=== PATIENT | female | born 1940 | race Caucasian/White ===

== ENCOUNTER 2017-07-08 12:35 | Emergency (ER) | payer MEDICARE, SELFPAY ==
[2017-07-08 12:38] VITALS: BP 162/82; PULSE 88; RESP 16; TEMP 36.8; O2SAT 96; BMI 34.6
--- NOTE | 2017-07-08 12:50 | EKG12_ITS ---
Test Reason : CP Blood Pressure : / mmHG Vent. Rate : 082 BPM Atrial Rate : 082 BPM P-R Int : 136 ms QRS Dur : 088 ms QT Int : 372 ms P-R-T Axes : 038 -05 036 degrees QTc Int : 434 ms Normal sinus rhythm Normal ECG Confirmed by JOSEE ZEPEDA, PATSY ([id number]), editor dictionary GIRMA SANTILLAN ([id number]) on 07/10/2017 9:43:56 AM Referred By: PAULETTE Confirmed By:PATSY TRIPP MD
--- NOTE | 2017-07-08 12:50 | RAD_ITS ---
STUDY: X-RAY CHEST REASON FOR EXAM: Female, 77 years old. Cough and chest pain symptoms. TECHNIQUE: PA and lateral views of the chest. COMPARISON: July 10, 2016. FINDINGS: Cardiac monitoring leads are present. The lungs are hyperexpanded. There is interstitial thickening visible in both lungs. There is pleural fibrotic thickening of the pulmonary lung apices. There is borderline cardiomegaly. There are calcified mediastinal and hilar lymph nodes. Normal visualized pulmonary arteries. There is atherosclerotic calcification of the aortic arch with tortuosity. There is demineralization of the osseous structures. Patient has had open reduction and internal fixation of the proximal right humerus fracture. The proximal humerus is residual deformity. There is increased thoracic kyphosis. There is decreased height of several thoracic vertebral bodies probably related to mild old compression fractures. There is no demonstrated abnormality of the visualized soft tissue structures of the upper abdomen. RAD/Chest PA and Lateral IMPRESSION: Unchanged appearance of the chest with borderline cardiomegaly and apparent pulmonary fibrosis. Electronically Signed: Pura Kirkpatrick MD at 14:27 EST , Service support ,
--- NOTE | 2017-07-08 12:53 | ED.DCSUM_ITS ---
- ER Visit Summary Date of Service: 07/08/17 Chief Complaint: Chest pain History of Present Illness: The patient is a 77 F presenting with basically 2 days of fairly constant right sided nonradiating chest pain. It started while she was at the [facility] and has been constant but worse for the past 24 hours. It is not pleuritic but it is somewhat worse with coughing. She has also been short of breath and having cough but no body aches or fever/chills. She has a history of COPD and does occasionally get chest pain when she develops a bronchitis. She denies recent travel or mobilization. Denies lower extremity pain/swelling. Physical Examination: Vitals are within normal limits. Pulse ox is nearly 100% on room air. She is not in distress. Neck is supple. Heart tones are regular and without murmur. Lungs are clear bilaterally. Abdomen is soft and nontender. She has no edema. No tenderness along the lower extremity venous system, palpable cords, or other evidence of DVT. She has strong pulses in all extremities. Test Results: Chest x-ray negative. Troponin negative after several days of pain. Labs are basically within normal limits. Influenza A was positive Emergency Department Course and Treatment: Influenza A is positive. Chest x- ray is negative for infiltrate. Pulse ox is in the high 90s on room air and she feels well. She wants to try going home which I think is reasonable. She has no wheezing on exam so I do not think she needs steroids and her cough is nonproductive so I do not feel she needs antibiotics. She is certainly high risk because of her OPD so I told her to come back if she is not better within 24 hours and sooner if she is worse. She will be started on Tamiflu. Treatment Plan: Oral Tamiflu, close follow-up Disposition: Home in stable condition Impression: Influenza A, initial encounter This note was generated with [employer] dictation software. It may contain incorrect words, spelling, and punctuation that were not noted in review of the chart prior to signing ED Disposition - Plan for ED Patient: Chief Complaint: Chest Pain Instructions: ED Flu Prescriptions: Ondansetron [Zofran Odt] 4 mg PO Q8H PRN PRN #10 tablet PRN Reason: Nausea Oseltamivir Phosphate [Tamiflu] 75 mg PO BID #10 capsule Referrals: Quan Valenzuela MD [Primary Care Provider] - As soon as possible
[2017-07-08 13:01] LABS: Absolute Lymphocyte Count 0.67 X10^3/ul (0.83-4.51); Absolute Neutrophil Count 5.9 X10^3/uL (2.0-7.7); Basophil# 0.03 X10^3/uL; Basophil% 0.4 % (0-1); Eosinophil# 0.06 X10^3/uL; Eosinophils% 0.8 % (0-5); Hematocrit 37.6 % (37-47); Hemoglobin 12.9 g/dl (12.0-15.0); Lymphocyte # 0.67 X10^3/ul (4.0); Lymphocyte % 9.2 % (19-41); Mean Corp Hgb Conc 34.3 g/gl (32-36); Mean Corpuscular Hgb 32.7 pg (27.0-32.0); Mean Corpuscular Volume 95.4 fL (81-99); Mean Platelet Vol. 10.8 fl (6.2-12.0); Monocyte# 0.66 X10^3/uL; Neutrophil # 5.87 X10^3/uL (2.7-7.7); Neutrophil % 80.2 % (47-70); Platelet Count 147 K/mm3 (150-450); RBC Distribution Width CV 13.5 % (11.6-14.6); RBC Distribution Width SD 45.6 fl (35.1-43.9); Red Blood Count 3.94 M/mm3 (4.2-5.4); White Blood Count 7.3 K/mm3 (4.4-11.0)
[2017-07-08] MEDS: Aspirin 81 MG TAB.CHEW 324 MG PO (13:01)
[2017-07-08 13:02] LABS: POSITIVE COUNT NO; POSITIVE DIFFERENTIAL NO; POSITIVE MORPHOLOGY NO
[2017-07-08 13:22] LABS: Anion Gap 5 (5-15); BUN 12 mg/dL (7-18); BUN/Creat Ratio 20.2 RATIO (10-20); Calcium,Total 8.7 mg/dL (8.5-10.1); Chloride 101 mmol/L (98-107); Creatinine, Serum 0.59 mg/dL (0.55-1.02); EST Glomerular Filtration Rate 104 mL/min (>60); Est Glom Filt Rate - Afr Amer 126 mL/min (>60); Estimated Creatinine Clearance 36.12 ml/min; Glucose 101 mg/dL (74-106); Potassium 4.2 mmol/L (3.5-5.1); Sodium Level 134 mmol/L (136-145)
[2017-07-08 13:58] VITALS: BP 152/71; PULSE 78; RESP 24; O2SAT 93
[2017-07-08] MEDS: Oseltamivir Phosphate 75 MG Capsule PO (14:57)
[2017-07-08 15:11] VITALS: BP 138/73; PULSE 79; RESP 14; O2SAT 96
== END 2017-07-08 15:40 | disposition home or self-care (01) ==
PROVIDERS: Emergency Provider Emergency Medicine; Family Provider Family Medicine; PCP Family Medicine
DX: J11.1 Influenza due to unidentified influenza virus with other respiratory manifestations (principal); J44.9 Chronic obstructive pulmonary disease, unspecified; Z72.0 Tobacco use
CPT/HCPCS: 71046; 80048; 84484; 85025; 87804; 93005; 99284; A4216

== ENCOUNTER → 2017-07-23 10:27 | Outpatient (CLI) | payer MEDICARE, SELFPAY ==
--- NOTE | 2017-07-23 10:31 | RAD_ITS ---
XR Chest 2 Views INDICATION: cough, recent flu, possible pneumonia COMPARISON: July 08, 2017 TECHNIQUE: Portable chest x-ray FINDINGS: The heart size is at the upper limits of normal. Arteriosclerotic calcifications of the aortic arch are noted. Central pulmonary vascularity is within normal limits. Interstitial markings are increased, similar compared to the previous exam. No evidence of focal airspace consolidation or pleural effusion. The osseous structures are osteopenic. RAD/Chest PA and Lateral IMPRESSION: Stable chest x-ray with chronic increased interstitial markings. Stable borderline cardiomegaly and arteriosclerotic disease. at 0056 Reported and signed by: Jackie Upton MD Electronically Signed: Jackie Upton MD at 23:55 EST Tel , Service support ,
== END ==
PROVIDERS: Family Provider Family Medicine; PCP Family Medicine; Visit Provider Family Medicine
DX: R05 Cough (principal)
CPT/HCPCS: 71046

== ENCOUNTER → 2018-09-30 10:40 | Outpatient (CLI) | payer MEDICARE, SELFPAY ==
[2018-09-30 12:19] LABS: Hematocrit 35.7 % (37-47); Hemoglobin 11.6 g/dl (12.0-15.0); Mean Corp Hgb Conc 32.5 g/gl (32-36); Mean Corpuscular Volume 92.2 fL (81-99); Mean Platelet Vol. 11.1 fl (6.2-12.0); Platelet Count 287 K/mm3 (150-450); RBC Distribution Width CV 13.8 % (11.6-14.6); RBC Distribution Width SD 45.9 fl (35.1-43.9); Red Blood Count 3.87 M/mm3 (4.2-5.4); White Blood Count 9.2 K/mm3 (4.4-11.0)
[2018-09-30 12:23] LABS: Scan Indicated on CBC? Y/N NO
[2018-09-30 12:45] LABS: Vitamin D,25 Hydroxy 45.8 ng/mL (29.95-100.01)
[2018-09-30 13:00] LABS: ALB/GLOB Ratio 0.9 RATIO (0.9-2.4); AST(SGOT) 19 U/L (15-37); Alanine Aminotransfer ALT/SGPT 20 U/L (13-56); Albumin, Serum 3.3 g/dL (3.2-5.0); Alkaline Phosphatase 112 U/L (45-117); Anion Gap 3 (5-15); Anion Gap 6 (5-15); BUN 10 mg/dL (7-18); BUN 11 mg/dL (7-18); BUN/Creat Ratio 15.3 RATIO (10-20); Calcium,Total 8.6 mg/dL (8.5-10.1); Calcium,Total 8.8 mg/dL (8.5-10.1); Chloride 103 mmol/L (98-107); Chloride 105 mmol/L (98-107); Cholesterol 112 mg/dL (200); Creatinine, Serum 0.71 mg/dL (0.55-1.02); Creatinine, Serum 0.72 mg/dL (0.55-1.02); EST Glomerular Filtration Rate 84 mL/min (>60); Est Glom Filt Rate - Afr Amer 101 mL/min (>60); Est Glom Filt Rate - Afr Amer 102 mL/min (>60); Globulin 3.5 g/dL (2.2-4.2); Glucose 95 mg/dL (74-106); Glucose 98 mg/dL (74-106); High Density Lipoprotein 50 mg/dL; Magnesium 1.8 mg/dL (1.6-2.6); Potassium 4.1 mmol/L (3.5-5.1); Potassium 4.2 mmol/L (3.5-5.1); Protein, Total 6.8 g/dL (6.4-8.2); Sodium Level 136 mmol/L (136-145); Thyroid Stim Hormone (TSH) 1.97 uIU/mL (0.358-3.74); Triglycerides 115 mg/dL; Very Low Density Lipoprotein 23 mg/dL (5-40)
== END ==
PROVIDERS: PCP Family Medicine; Visit Provider Nurse Practitioner Family
DX: R10.9 Unspecified abdominal pain (principal); M81.0 Age-related osteoporosis without current pathological fracture; I10 Essential (primary) hypertension; I25.10 Atherosclerotic heart disease of native coronary artery without angina pectoris
CPT/HCPCS: 36415; 80048; 80053; 80061; 82306; 83735; 84443; 85027

== ENCOUNTER → 2019-02-13 14:44 | Outpatient (CLI) | payer MEDICARE, SELFPAY ==
--- NOTE | 2019-02-13 14:49 | RAD_ITS ---
STUDY: X-RAY CHEST REASON FOR EXAM: Female, 78 years old. Upper respiratory infection TECHNIQUE: Frontal and lateral views of the chest. COMPARISON: November 20, 2017. FINDINGS: There is hyperinflation of the lungs consistent with chronic obstructive lung disease (COPD). There is a new 2.7 cm focal density in the left upper lobe. This could be a mass. CT with contrast is recommended. No infiltrates. No effusions. There is no demonstrated pleural abnormality. Normal size heart. Normal mediastinum and meeta. Normal visualized pulmonary arteries. There is atherosclerotic calcification of the aortic arch with tortuosity. There are diffuse degenerative changes of the visualized thoracic spine. Stable appearance of surgical changes of the proximal right humerus. There is no demonstrated abnormality of the visualized soft tissue structures of the upper abdomen. RAD/Chest PA and Lateral IMPRESSION: Probable COPD. 2.7 cm focal density of the left upper lobe. CT with contrast is recommended. Electronically Signed: Waldemar Mccall MD at 21:40 EDT , Service support ,
== END ==
PROVIDERS: Family Provider Family Medicine; PCP Family Medicine; Referring Provider Family Medicine; Visit Provider Family Medicine
DX: J06.9 Acute upper respiratory infection, unspecified (principal)
CPT/HCPCS: 71046

== ENCOUNTER → 2019-02-25 13:17 | Outpatient (CLI) | payer MEDICARE, SELFPAY ==
--- NOTE | 2019-02-25 13:21 | CT_ITS ---
STUDY: CT CHEST WITHOUT CONTRAST REASON FOR EXAM: Female, 78 years old. Nodule on x-ray RADIATION DOSAGE (If Supplied By Facility): CTDIvol = ( 13.10 ) mGy, DLP = ( 392.28 ) mGycm TECHNIQUE: Transaxial imaging was performed without the administration of intravenous contrast material. Individualized dose optimization techniques were used for this CT. COMPARISON: None. FINDINGS: The lungs are hyperaerated. There is a lobulated left upper lobe 2.3 x 2.1 cm nodular mass with spiculation requiring further evaluation. Normal heart and pericardium. Normal mediastinum. Normal hilar regions. Normal unenhanced pulmonary arteries. Calcified aorta arch and descending thoracic aorta. Degenerative vertebral changes. There is no demonstrated abnormality of the visualized upper abdomen. CT/Chest without Contrast IMPRESSION: Lobulated nodule mass in the left upper lobe. Malignancy cannot be excluded. Further evaluation is needed. Electronically Signed: Franklin Kuo DO at 23:10 EDT Tel [phone], Service support ,
== END ==
PROVIDERS: Family Provider Family Medicine; PCP Family Medicine; Referring Provider Family Medicine; Visit Provider Family Medicine
DX: R91.8 Other nonspecific abnormal finding of lung field (principal)
CPT/HCPCS: 71250

== ENCOUNTER → 2019-03-03 14:08 | Outpatient (CLI) | payer MEDICARE, SELFPAY ==
[2019-03-03 15:17] LABS: Absolute Lymphocyte Count 2.08 X10^3/uL (0.83-4.51); Absolute Neutrophil Count 5.3 X10^3/uL (2.0-7.7); Basophil# 0.05 X10^3/uL; Basophil% 0.6 % (0-1); Eosinophil# 0.13 X10^3/uL; Eosinophils% 1.5 % (0-5); Hematocrit 35.3 % (37-47); Hemoglobin 11.4 g/dL (12.0-15.0); Lymphocyte # 2.08 X10^3/ul (4.0); Lymphocyte % 24.7 % (19-41); Mean Corp Hgb Conc 32.3 g/dL (32-36); Mean Corpuscular Hgb 28.6 pg (27.0-32.0); Mean Corpuscular Volume 88.7 fL (81-99); Mean Platelet Vol. 10.2 fl (6.2-12.0); Monocyte# 0.79 X10^3/uL; Monocyte% 9.4 % (0-10); NRBC Flagged by Analyzer 0 % (0-5); Neutrophil # 5.33 X10^3/uL (2.7-7.7); Neutrophil % 63.3 % (47-70); Platelet Count 297 K/mm3 (150-450); RBC Distribution Width CV 15.5 % (11.6-14.6); RBC Distribution Width SD 50.4 fl (35.1-43.9); Red Blood Count 3.98 M/mm3 (4.2-5.4); White Blood Count 8.4 K/mm3 (4.4-11.0)
[2019-03-03 15:28] LABS: Erythrocyte Sedimentation Rate 19 mm/hr (0-30)
[2019-03-03 16:08] LABS: ALB/GLOB Ratio 1.1 RATIO (0.9-2.4); AST(SGOT) 21 U/L (15-37); Alanine Aminotransfer ALT/SGPT 19 U/L (13-56); Albumin, Serum 3.5 g/dL (3.2-5.0); Alkaline Phosphatase 109 U/L (45-117); Anion Gap 6 (5-15); BUN 16 mg/dL (7-18); BUN/Creat Ratio 26.4 RATIO (10-20); CRP < 2.90 mg/L (0.0-3.0); Chloride 103 mmol/L (98-107); EST Glomerular Filtration Rate 102 mL/min (>60); Est Glom Filt Rate - Afr Amer 123 mL/min (>60); Globulin 3.3 g/dL (2.2-4.2); Glucose 92 mg/dL (74-106); LDH 165 U/L (84-246); Potassium 4.2 mmol/L (3.5-5.1); Protein, Total 6.8 g/dL (6.4-8.2); Sodium Level 136 mmol/L (136-145)
== END ==
PROVIDERS: Family Provider Family Medicine; PCP Family Medicine; Referring Provider Family Medicine; Visit Provider Family Medicine
DX: R91.1 Solitary pulmonary nodule (principal)
CPT/HCPCS: 36415; 80053; 83615; 85025; 85652; 86140

== ENCOUNTER → 2019-03-14 10:06 | Outpatient (CLI) | payer MEDICARE, SELFPAY ==
[2019-03-14 12:40] LABS: Hematocrit 34.7 % (37-47); Hemoglobin 10.9 g/dL (12.0-15.0); Mean Corp Hgb Conc 31.4 g/dL (32-36); Mean Corpuscular Hgb 28.2 pg (27.0-32.0); Mean Corpuscular Volume 89.9 fL (81-99); Mean Platelet Vol. 10.5 fl (6.2-12.0); Platelet Count 277 K/mm3 (150-450); RBC Distribution Width CV 15.7 % (11.6-14.6); RBC Distribution Width SD 51.4 fl (35.1-43.9); Red Blood Count 3.86 M/mm3 (4.2-5.4); White Blood Count 7.8 K/mm3 (4.4-11.0)
[2019-03-14 12:48] LABS: Prothrombin Time (Protime)PT. 12.9 SECONDS (11.7-14.9)
[2019-03-14 12:49] LABS: Partial Thromboplast Time 34.5 Seconds (24.1-36.2)
== END ==
PROVIDERS: Family Provider Family Medicine; PCP Family Medicine; Referring Provider Family Medicine; Visit Provider Family Medicine
DX: R91.1 Solitary pulmonary nodule (principal); I25.10 Atherosclerotic heart disease of native coronary artery without angina pectoris
CPT/HCPCS: 36415; 85027; 85610; 85730

== ENCOUNTER → 2019-03-18 09:20 | Outpatient (CLI) | payer MEDICARE, SELFPAY ==
[2019-03-18] VITALS (11 sets, daily range): BP systolic 116–194; BP diastolic 43–105; PULSE 71–91; RESP 14–20; TEMP 37; O2SAT 95–100; BMI 33.8
--- NOTE | 2019-03-18 | IMM_PTH ---
PATIENT: ASHLEY GOMEZ LOC: CT U#:[id number] AGE/SX: 85/F ROOM: RE03/18/[address]: Dr. Vivek Valenzuela MD : 1940 BED: DIS: SPEC #: [id number] RECD: 03/19/19 13:27 STATUS: ANN MARIE REQ #: [id number] LIDIA: 03/18/19 00:[address]: Vivek Valenzuela DEPT: IMMUNOHISTOCHEMISTRY RECD BY: Yadi Mohamud Tissues: Lung, NOS Procedures: RCC (add) NAPSIN A (add) CK20 (add) CK5-6 (add) CK7 (add) CK8 (add) E-CAD (add) HEP PAR (add) HER2 BRITTANI (add) MAMM (add) ID (add) TTF1 (add) GATA3 (add) P40 (add) ER (initial) PHYSICIAN & INSTITUTION [place] [id number] SPECIMEN INFORMATION: Tissue Source: Left upper lobe lung mass Clinical Info: Left lung mass Specimen Number: [id number] CPT code: 51913, 36673 x14 METHODOLOGY: Deparaffinized sections of prefer/formalin-fixed tissue or PAP/DQ stained slides are incubated with monoclonal/polyclonal antibodies/oligonucleotide probes. Localization is made via biotin free immunoperoxidase method. Appropriate controls are performed and reacted as expected. Results on target cell population are indicated in the following table: RESULTS: ANTIBODY / CLONE RESULT ER (6F11) negative ID (1E2) negative Her-2neu (CB11) negative E-Cad (ECH-6) positive Mammaglobin (31A5) negative GATA3 (L50-823) negative CK7 (OV-TL12/30) negative CK8 (42mmvnQ00) positive, weak, focal CK20 (KS20.8) negative TTF-1 (8G7G3/1) negative Napsin A (Rabbit Polyclonal) negative HepPar (OCh1E5) negative RCC (PN-15) negative CK5-6 (D5 & 1684) positive P40 (BC28) positive These tests were developed and their performance characteristics determined by [facility]. They may not have been cleared or approved by the U.S. Food and Drug Administration. The FDA has determined that such clearance or approval is not necessary. The above immunohistochemical/dualISH markers are ordered and reviewed by the Pathologist. INTERPRETATION: Left upper lobe lung mass, CT-guided biopsy: Non-small cell carcinoma, favor squamous cell carcinoma. This case has been reviewed in consultation with Dr. Castro who concurs with the above diagnosis. SJ:shazia 03/20/19
--- NOTE | 2019-03-18 | ASPIGT_PTH ---
PATIENT: ASHLEY GOMEZ LOC: CT U#:[id number] AGE/SX: 85/F ROOM: RE03/18/[address]: Dr. Vivek Valenzuela MD : 1940 BED: DIS: SPEC #: [id number] RECD: 03/18/19 13:06 STATUS: ANN MARIE ROMAINE #: [id number] LIDIA: 03/18/19 00:[address]: Vivek Valenzuela DEPT: SURGICAL PATHOLOGY RECD BY: Foster Encinas Tissues: Lung, NOS Procedures: FNA Specimen Adequacy Special Stain Group II Surgery Specimen Level IV Imprint (control) HEADER OPERATION: CT-guided core biopsy, left upper lung mass PRE-OP DIAGNOSIS: Left lung mass TISSUE SUBMITTED: Left upper lung core x4 MICROSCOPIC DIAGNOSIS Left upper lobe lung mass, CT-guided core biopsy: Non-small cell carcinoma, favor squamous cell carcinoma. See comment. RUSTAM:shazia 03/19/19 COMMENT The specimen is evaluated at the time of biopsy by Dr. Madrid. Immediate Evaluation = Mildly atypical cells noted. Immunohistochemistry ([id number]) supports the above diagnosis. Molecular studies on the tumor can be performed if clinically indicated. Please notify the laboratory if they are needed. Case has been reviewed in consultation with Dr. Reyes who concurs with the above diagnosis. IDC:AM MICROSCOPIC DESCRIPTION Slides are reviewed. GROSS DESCRIPTION Received in fixative is one container labeled with the patient's name and designated ANJELICA mass. The specimen consists of multiple irregular fragments of light coles soft tissue that in aggregate measure 1 x 0.2 x <0.1 cm. The specimen is totally submitted in one cassette. / SJ:shazia 03/18/19 TC:0 CPT: 60585, 26776
--- NOTE | 2019-03-18 09:23 | CT_ITS ---
PROCEDURE: CT GUIDED CORE NEEDLE BIOPSY OF A left upper lobe LUNG LESION INDICATION: Female, 78 years old. Left upper lobe nodule. PHYSICIAN: Dr. Mayito Travis CONSENT: Written informed consent was obtained having explained the risks, benefits and alternatives in detail with the patient who accepted the risks and agreed to proceed. Laboratory review and clinical assessment was performed. CONSCIOUS SEDATION PROTOCOL: The Drugs used were: 2 mg Versed, IV., and 50 mcg Fentanyl, IV. The sedation time was: 23 minutes. Conscious sedation was started 11:00 AM and terminated 11:23 AM. The conscious sedation protocol was independently monitored. RADIATION DOSAGE (If Supplied By Facility): CTDIvol = ( 21.6 ) mGy, DLP = (402.2) mGycm Individualized dose optimization techniques were used for this CT. TECHNIQUE: The patient was placed in the colon position. A noncontrast CT was performed to localize the lesion in the left upper lobe . The skin surface was prepped and draped in a sterile fashion. 1% lidocaine was used for local anesthesia. Using CT guidance, a 20-gauge coaxial biopsy device was advanced to the periphery of the lesion. A total of 4 core specimens were obtained. The specimens were placed in a formalin solution. A post procedure CT demonstrated no adverse sequelae or pneumothorax. The patient tolerated the procedure well without adverse event. A negative biopsy does not exclude malignancy. Further imaging or clinical followup based on patient condition and degree of clinical suspicion for malignancy. Suggest rebiopsy, if biopsy results do not match with clinical scenario. CT/Biopsy/Inj or Needle Placement IMPRESSION: 1. CT directed core needle biopsy of the 20-gauge coaxial core biopsy needle using CT image guidance with image documentation as described. Pathology results are pending. 2. Conscious Sedation protocol utilized with independent monitoring. Electronically Signed: Babak Edmond, at 14:00 EDT , Service support ,
[2019-03-18] MEDS: fentaNYL 100 MCG/2 ML Ampul IV (11:00)
[2019-03-18] MEDS: Midazolam 2 MG/2 ML Syringe IV (11:00)
--- NOTE | 2019-03-18 11:25 | RAD_ITS ---
STUDY: X-RAY CHEST REASON FOR EXAM: Female, 78 years old. Immediate left post biopsy radiograph. TECHNIQUE: AP inspiration and expiration views. COMPARISON: Comparison is made with prior examination of February 13, 2019. FINDINGS: There is no evidence of pneumothorax on the immediate post left lung biopsy radiograph. Persistent nodular density in the left upper lobe. RAD/Chest Insp/Exp 2 View IMPRESSION: No evidence of a pneumothorax on the immediate post left lung biopsy radiograph. Electronically Signed: Babak Edmond, at 13:21 EDT , Service support ,
--- NOTE | 2019-03-18 13:25 | RAD_ITS ---
STUDY: X-RAY CHEST REASON FOR EXAM: Female, 78 years old. 2 hour delay post left lung biopsy radiograph. TECHNIQUE: AP inspiration and expiration views. COMPARISON: Comparison is made with prior study done earlier in the day. FINDINGS: The patient is status post left lung biopsy. There is no evidence of pneumothorax. RAD/Chest Insp/Exp 2 View IMPRESSION: No evidence of pneumothorax on the 2 hour delay post left lung biopsy radiograph. Electronically Signed: Babak Edmond, at 9:54 EDT , Service support ,
== END ==
LOC: CT 09:21
PROVIDERS: Family Provider Family Medicine; PCP Family Medicine; Referring Provider Family Medicine; Visit Provider Family Medicine
DX: C34.12 Malignant neoplasm of upper lobe, left bronchus or lung (principal); R91.1 Solitary pulmonary nodule; I25.10 Atherosclerotic heart disease of native coronary artery without angina pectoris; F32.9 Major depressive disorder, single episode, unspecified; E78.5 Hyperlipidemia, unspecified; I10 Essential (primary) hypertension; F17.210 Nicotine dependence, cigarettes, uncomplicated
CPT/HCPCS: 32405; 71046; 77012; 88172; 88305; 88313; 88341; 88342; 99156; 99157; J7040; A4216

== ENCOUNTER → 2019-03-24 16:57 | Outpatient (CLI) | payer MEDICARE, SELFPAY ==
[2019-03-18 09:59] VITALS: BMI 33.8
--- NOTE | 2019-03-24 16:59 | CT_ITS ---
STUDY: CT ABDOMEN WITH CONTRAST REASON FOR EXAM: Female, 79 years old. Carcinoma RADIATION DOSAGE (If Supplied By Facility): CTDIvol = ( 20.18 ) mGy, DLP = ( 687.92 ) mGycm TECHNIQUE: Transaxial images were obtained post I.V. administration of IV Isovue 370 100ML, and without oral contrast. Sagittal and coronal images were reconstructed. Individualized dose optimization techniques were used for this CT. COMPARISON: None. FINDINGS: The visualized lung bases are unremarkable. The heart is enlarged. Normal liver. Normal gallbladder and extrahepatic biliary system. Normal spleen. Normal pancreas. Normal bilateral adrenal glands. Normal right kidney. Normal left kidney. Normal visualized stomach. Normal small intestine. Normal colon. The appendix is visualized and appears normal. Normal abdominal aorta. Normal inferior vena cava. Normal retroperitoneum. Normal abdominal wall. Normal osseous structures. CT/Abdomen WITH IV Contrast IMPRESSION: No evidence of metastatic disease in the abdomen. Cardiomegaly. Electronically Signed: José Miguel Almanza, at 17:37 EDT Tel , Service support ,
== END ==
LOC: CT 16:57
PROVIDERS: Family Provider Family Medicine; PCP Family Medicine; Referring Provider Family Medicine; Visit Provider Family Medicine
DX: C34.90 Malignant neoplasm of unspecified part of unspecified bronchus or lung (principal)
CPT/HCPCS: 74160; Q9967

== ENCOUNTER 2019-04-15 12:40 | Inpatient (IN) | payer MEDICARE, SELFPAY ==
[2019-04-15] VITALS (10 sets, daily range): BP systolic 132–161; BP diastolic 60–81; PULSE 63–92; RESP 15–20; TEMP 34.4–36.9; O2SAT 93–95; BMI 33.0; BMI 35.4; BMI 33.7
--- NOTE | 2019-04-15 13:07 | CT_ITS ---
STUDY: CT BRAIN WITHOUT CONTRAST REASON FOR EXAM: Female, 79 years old. Dizziness. History of lung cancer. RADIATION DOSAGE (If Supplied By Facility): CTDIvol = ( 44.99 ) mGy, DLP = ( 863.60 ) mGycm TECHNIQUE: Transaxial CT imaging of the brain was performed without administration of intravenous contrast material. Individualized dose optimization techniques were used for this CT. COMPARISON: No relevant priors. FINDINGS: Normal soft tissue structures. Normal calvarium. There is mild cerebral atrophy with widening of the extra-axial spaces and ventricular dilatation. There are areas of decreased attenuation within the white matter tracts of the supratentorial brain, consistent with microvascular disease changes. Normal basal ganglia and thalami. Normal brainstem. Normal cerebellum. There is no intracranial hemorrhage. There are no findings of an acute ischemic infarction. Atherosclerotic calcification of the cavernous portions of the internal carotid arteries bilaterally. Normal visualized paranasal sinuses. CT/Brain/Head without Contrast IMPRESSION: Chronic involutional changes of the brain. Electronically Signed: Babak Edmond, at 14:44 EST , Service support ,
--- NOTE | 2019-04-15 13:07 | EKG12_ITS ---
Test Reason : NAUSEA/VOMITING Blood Pressure : / mmHG Vent. Rate : 062 BPM Atrial Rate : 062 BPM P-R Int : 152 ms QRS Dur : 100 ms QT Int : 478 ms P-R-T Axes : -18 -21 051 degrees QTc Int : 485 ms Normal sinus rhythm Moderate voltage criteria for LVH, may be normal variant Nonspecific T wave abnormality Prolonged QT Abnormal ECG Confirmed by SWETA ANDUJAR ([id number]), map editor RAFAEL ARANGO ([id number]) on 04/18/2019 11:21:19 AM Referred By: Capo Reveles Confirmed By:SWETA ANDUJAR
[2019-04-15] MEDS: LORazepam 2 MG/ML Syringe 1 MG IV (13:28)
[2019-04-15] MEDS: Ondansetron 4 MG/2 ML Vial IV ×2 (13:28→22:18)
--- NOTE | 2019-04-15 13:32 | ED.DCSUM_ITS ---
- ER Visit Summary Date of Service: 04/15/19 Chief Complaint: Dizziness and nausea History of Present Illness: The patient is a 79 F with dizziness and nausea. Symptoms started at her doctor's waiting room around 11:30 AM. Patient reports severe dizziness, spinning. She also has nausea and vomiting. She never had this before. History of coronary disease, hypertension, hyperlipidemia, GERD, bleeding ulcer, and lung cancer. She takes aspirin and Plavix among her other medications. Physical Examination: Afebrile and vital signs unremarkable. Head and neck unremarkable on inspection. Cranial nerves grossly intact. HEENT exam unremarkable. Heart regular. Lungs clear. No focal or lateralizing neurologic abnormalities. NIH exam is limited but 0. Test Results: EKG, labs, chest x-ray, CT brain pending. Emergency Department Course and Treatment: Patient treated with fluids, Zofran, Ativan while awaiting results. She will likely need admission for further care. On reevaluation, patient is resting comfortably. No further nausea or vomiting. Heme globin 8.8. Metabolic panel unremarkable. INR and PTT normal. Troponin normal. Chest x-ray showed congestion, mild. CT showed chronic changes of her brain. Patient lives alone. Her symptoms are severe. She will need further care and evaluation in the hospital. Hospitalist will admit to PCU for observation. Treatment Plan: As above Disposition: PCU observation Impression: 1. Dizziness This note was generated with [employer] dictation software. It may contain incorrect words, spelling, and punctuation that were not noted in review of the chart prior to signing ED Disposition - Plan for ED Patient: Referrals: Quan Valenzuela MD [Primary Care Provider] -
[2019-04-15 13:45] LABS: Anion Gap 9 (5-15); BUN 13 mg/dL (7-18); BUN/Creat Ratio 22.3 RATIO (10-20); Calcium,Total 8.9 mg/dL (8.5-10.1); Chloride 102 mmol/L (98-107); Creatinine, Serum 0.58 mg/dL (0.55-1.02); EST Glomerular Filtration Rate 106 mL/min (>60); Est Glom Filt Rate - Afr Amer 129 mL/min (>60); Estimated Creatinine Clearance 36.67 ml/min; Glucose 153 mg/dL (74-106); Potassium 3.7 mmol/L (3.5-5.1); Sodium Level 135 mmol/L (136-145)
[2019-04-15 13:59] LABS: Absolute Lymphocyte Count 1.04 X10^3/uL (0.83-4.51); Absolute Neutrophil Count 8.8 X10^3/uL (2.0-7.7); Basophil# 0.04 X10^3/uL; Basophil% 0.4 % (0-1); Eosinophil# 0.06 X10^3/uL; Eosinophils% 0.6 % (0-5); Hematocrit 28.1 % (37-47); Hemoglobin 8.8 g/dL (12.0-15.0); Lymphocyte # 1.04 X10^3/ul (4.0); Lymphocyte % 9.7 % (19-41); Mean Corp Hgb Conc 31.3 g/dL (32-36); Mean Corpuscular Hgb 27.8 pg (27.0-32.0); Mean Corpuscular Volume 88.6 fL (81-99); Mean Platelet Vol. 9.6 fl (6.2-12.0); Monocyte# 0.74 X10^3/uL; Monocyte% 6.9 % (0-10); NRBC Flagged by Analyzer 0 % (0-5); Neutrophil # 8.82 X10^3/uL (2.7-7.7); Neutrophil % 81.8 % (47-70); Platelet Count 297 K/mm3 (150-450); RBC Distribution Width CV 15.4 % (11.6-14.6); RBC Distribution Width SD 50.6 fl (35.1-43.9); Red Blood Count 3.17 M/mm3 (4.2-5.4); White Blood Count 10.8 K/mm3 (4.4-11.0)
--- NOTE | 2019-04-15 14:10 | RAD_ITS ---
STUDY: X-RAY CHEST REASON FOR EXAM: Female, 79 years old. Dizziness. Nausea and vomiting. TECHNIQUE: Single AP portable view of the chest. COMPARISON: Comparison is made with prior study dated March 18, 2019. FINDINGS: EKG electrodes are seen. Stable 2.3 cm nodule in the left upper lobe. Mild degree of vascular congestion. There is no demonstrated pleural abnormality. There is mild cardiac enlargement. Normal mediastinum and meeta. Normal visualized pulmonary arteries. There is atherosclerotic calcification of the aortic arch with tortuosity. There are diffuse degenerative changes of the visualized thoracic spine. Prior resection of the right humeral head and ORIF of the proximal right humerus. There is no demonstrated abnormality of the visualized soft tissue structures of the upper abdomen. RAD/Chest 1 View IMPRESSION: Mild degree of vascular congestion. Electronically Signed: Babak Edmond, at 14:46 EST , Service support ,
[2019-04-15 14:11] LABS: Prothrombin Time (Protime)PT. 13.4 SECONDS (11.7-14.9)
[2019-04-15 14:12] LABS: Partial Thromboplast Time 28.3 Seconds (24.1-36.2)
--- NOTE | 2019-04-15 15:53 | HP.PCM_ITS ---
Problem List (1) CAD (coronary artery disease) Status: Chronic (2) HTN (hypertension) Status: Chronic (3) HLD (hyperlipidemia) Status: Chronic (4) GERD (gastroesophageal reflux disease) Status: Chronic (5) GI bleed Status: Chronic History of Present Illness Date of Admission: 04/15/19 Chief Complaint: Dizziness, nausea. The patient is a 79 year old F who presents to the emergency room due to dizziness and nausea. Patient received IV Ativan in ER and is very lethargic on assessment and unable to provide HPI. Per ER reports, patient was at oncology office today and reported sudden onset dizziness, room spinning, nausea and vomiting. Patient now appears to be resting comfortably in bed however lethargic and difficult to arouse. She was reported to be alert and appropriate prior to Ativan administration. No family at bedside during assessment. She has a past medical history of coronary artery disease, hypertension, hyperlipidemia, GERD, recent GI bleed secondary to bleeding ulcer and recent diagnosis non-small cell lung cancer. Past Medical History Past Medical History (Chronic Problems): Chronic Problems (Last Reviewed 04/15/19 @ 10:[address]) Non-small cell carcinoma of left lung (Chronic) CAD (coronary artery disease) (Chronic) HTN (hypertension) (Chronic) HLD (hyperlipidemia) (Chronic) GERD (gastroesophageal reflux disease) (Chronic) GI bleed (Chronic) Medical History: Medical History (Last Reviewed 04/15/19 @ 10:[address]) Fracture of wrist S62.109A with surgical repair, plate Stomach ulcer K25.9 CAD (coronary artery disease) I25.10 Depression F32.9 Fatigue R53.83 Heartburn R12 Hyperlipidemia E78.5 Lung nodule R91.1 Hypertension I10 Allergies levofloxacin [From Levaquin] Allergy (Verified 04/15/19 12:42) Itching lisinopril Allergy (Verified 04/15/19 12:42) Other acetaminophen [From Percocet] Adverse Reaction (Verified 04/15/19 12:42) Vomiting oxycodone [From Percocet] Adverse Reaction (Verified 04/15/19 12:42) Vomiting Home Medications: Ambulatory Orders Medication Instructions Recorded Citalopram [Celexa] 20 mg PO DAILY 07/08/17 Atorvastatin Calcium [Lipitor] 80 mg PO DAILY 03/27/19 Losartan Potassium [Cozaar] 100 mg PO DAILY 03/27/19 Metoprolol Tartrate [Lopressor 25 mg PO BID 03/27/19 (Beta Casandra)] Ascorbic Acid [Vitamin C] 1,000 mg PO DAILY 04/15/19 Cholecalciferol (Vitamin D3) 2,000 unit PO DAILY 04/15/19 [Vitamin D3] Fluticasone Propionate 2 spray NASAL DAILY PRN PRN 04/15/19 Surgical History: Surgical History (Last Reviewed 04/15/19 @ 10:[address]) History of heart artery stent Z95.5 2018 [place] History of lung biopsy Z98.890 left 2019 Surgical History: - - Lung biopsy, angioplasty Psychiatric History: No pertinent psych hx 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 Lives: Alone Smoking Status: Current every day smoker Tobacco Use: Cigarettes Alcohol: None Drugs: None - *Family History Maternal Family History: Family History (Last Reviewed 04/15/19 @ 17:14 by SAMEER Burciaga) Brother Lung cancer Brother Lung cancer Father Lung cancer Mother Hypertension Paternal Family History: Family History (Last Reviewed 04/15/19 @ 17:14 by SAMEER Burciaga) Brother Lung cancer Brother Lung cancer Father Lung cancer Mother Hypertension Review of Systems Unable to obtain accurate/complete ROS d/t: Unable to obtain due to patient lethargy VTE Information - Inpt Only VTE Present on Admission: No VTE Mechan Device Prophylaxis: None VTE Pharm Prophylaxis ordered?: Yes - Physical Exam Vitals/I&O's: Vital Signs Temp Pulse Resp BP Pulse Ox 97.6 F L 83 15 161/81 H 94 04/15/19 15:35 04/15/19 15:35 04/15/19 15:35 04/15/19 15:35 04/15/19 15:35 Oxygen Delivery Method Room Air Weight: 193 lb 12.581 oz Body Mass Index (BMI) 35.4 Finger Stick Blood Glucose 166 Intake and Output for Last 24 Hours 04/13/19 04/14/19 04/15/19 23:59 23:59 23:59 Intake Total 500 / 500 Balance 500 / 500 General: Lethargic HEENT: Atraumatic, PERRLA, EOMI, Normocephalic Oral: Dry Mucosa Neck: Supple, No JVD, Negative Carotid Bruits Lungs: Clear to auscultation, Diminished Cardiovascular: Regular rate, Regular Rhythm, Normal S1, Normal S2, No murmurs Abdomen: Bowel Sounds Present, Soft, Non Tender, Non-Distended, Obese Extremities: No clubbing, No cyanosis, No edema, Capillary Refill Less than 3 Seconds Skin: No rashes, No breakdown Musculoskeletal: No Tenderness to Palpation of Joints or Extremities Neurological: Cranial nerves II-XII grossly intact, Neuro grossly intact Psych/Mental Status: - - Unable to assess due to lethargy Laboratory Results 04/15/19 13:18: WBC Cancelled, Corrected WBC Cancelled, RBC Cancelled, Hgb Cancelled, Hct Cancelled, MCV Cancelled, MCH Cancelled, MCHC Cancelled, RDW Std Deviation Cancelled, RDW Coeff of Dangelo Cancelled, Plt Count Cancelled, MPV Canc elled, Immature Gran % (Auto) Cancelled, Neut % (Auto) Cancelled, Lymph % (Auto) Cancelled, [place] % (Auto) Cancelled, Eos % (Auto) Cancelled, Baso % (Auto) Cancelled, Absolute Neuts (auto) Cancelled, Absolute Lymphs (auto) Cancelled, Total Counted Cancelled, Neutrophils % (Manual) Cancelled, Band Neutrophils % Cancelled, Lymphocytes % (Manual) Cancelled, Monocytes % (Manual) Cancelled, Eosinophils % (Manual) Cancelled, Basophils % (Manual) Cancelled, Metamyelocytes % Cancelled, Myelocytes % Cancelled, Promyelocytes % Cancelled, Blast Cells % Cancelled, Plasma Cell % (Manual) Cancelled, Other Cells % Cancelled, Nucleated RBC % Cancelled, Nucleated RBCs/100 WBC Cancelled, Differential Comment Cancelled, Diff Path Review Cancelled, Hypersegmented Neuts Cancelled, Atypical Lymphocytes Cancelled, Reactive Lymphocytes Cancelled, Smudge Cells Cancelled, Toxic Granulation Cancelled, Toxic Vacuolation Cancelled, Dohle Bodies Cancelled, Derek Rods Cancelled, Platelet Estimate Cancelled, Plt Morphology Comment Cancelled, RBC Morphology Cancelled, Polychromasia Cancelled, Hypochromasia Cancelled, Poikilocytosis Cancelled, Basophilic Stippling Cancelled, Anisocytosis Cancelled, Microcytosis Cancelled, Macrocytosis Cancelled, Spherocytes Cancelled, Sickle Cells Cancelled, Target Cells Cancelled, Tear Drop Cells Cancelled, Ovalocytes Cancelled, Stomatocytes Cancelled, Cummins-Ruby Bodies Cancelled, [place] Cells Cancelled, Bite Cells Cancelled, Crenated Cell Cancelled, Acanthocytes (Spur) Cancelled, Rouleaux Cancelled, Schistocytes Cancelled 04/15/19 13:18: PT Cancelled, INR Cancelled, APTT Cancelled 04/15/19 13:18: Sodium 135 L, Potassium 3.7, Chloride 102, Carbon Dioxide 24.0, Anion Gap 9, BUN 13, Creatinine 0.58, Estim Creat Clear Calc 36.67, Est GFR (MDRD) Af Amer 129, Est GFR (MDRD) Non-Af 106, BUN/Creatinine Ratio 22.3 H, Glucose 153 H, Calcium 8.9, Troponin I < 0.015 04/15/19 13:50: WBC 10.8, RBC 3.17 L, Hgb 8.8 L, Hct 28.1 L, MCV 88.6, MCH 27.8, MCHC 31.3 L, RDW Std Deviation 50.6 H, RDW Coeff of Dangelo 15.4 H, Plt Count 297, MPV 9.6, Immature Gran % (Auto) 0.600, Neut % (Auto) 81.8 H, Lymph % (Auto) 9.7 L, [place] % (Auto) 6.9, Eos % (Auto) 0.6, Baso % (Auto) 0.4, Absolute Neuts (auto) 8.8 H, Absolute Lymphs (auto) 1.04, Nucleated RBC % 0 04/15/19 13:50: PT 13.4, INR 1.0, APTT 28.3 Current Medications Sodium Chloride () 500 mls @ 999 mls/hr IV .Q31M ONE Last Infusion: 04/15/19 14:26 Dose: Infused Documented by: Sodium Chloride () 10 - 40 ml IV UD PRN PRN Reason: SALINE FLUSH Assessment/Plan 1. Dizziness with nausea, vomiting-brain CT on admission with chronic changes. PRN antiemetics. PT/OT. Obtain MRI of brain to rule out underlying metastases. 2. 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 Riley. 3. Recent GI bleed secondary to bleeding ulcer-hold aspirin, Plavix. Initiated on PPI. 4. CAD-continue statin, metoprolol, losartan. Hold aspirin, Plavix given recent GI bleed. 5. Chronic normocytic anemia-appears at baseline. 6. Hypertension-stable, continue losartan, metoprolol regimen. 7. Hyperlipidemia-continue statin. 8. Tobacco dependence-encouraged smoking cessation. 9. Depression-continue home citalopram regimen. DVT prophylaxis-Lovenox subcu. This patient was seen by SAMEER Burciaga under the supervision of Dr. Reveles.
[2019-04-15] MEDS: Enoxaparin 40 MG/0.4 ML Syringe SC (17:37)
[2019-04-15] MEDS: Metoprolol Tartrate 25 MG Tablet PO (22:06)
[2019-04-15] MEDS: Pantoprazole Sodium 40 MG Tablet PO (22:06)
[2019-04-15] MEDS: 0.9% Saline Lock 10 ML Syringe IV (22:18)
[2019-04-15] MEDS: diazePAM 5 MG Tablet PO (22:18)
--- NOTE | 2019-04-15 22:19 | NURSING ---
RN TOOK PATIENT TO BATHROOM, DENIES ANY DIZZINESS THE WHOLE TIME, WHEN GOT BACK TO BED STARTED TO FEEL NAUSEOUS AND DIZZY. BP 168/77, HR 68. PATIENT TO BE GIVEN ZOFRAN AND VALIUM. DID HAVE SOME EMESIS AT THIS TIME.
[2019-04-16] VITALS (8 sets, daily range): BP systolic 117–173; BP diastolic 52–69; PULSE 67–82; RESP 16–18; TEMP 36.7–36.9; O2SAT 93–96
[2019-04-16] MEDS: diazePAM 5 MG Tablet PO ×2 (05:00→14:02)
--- NOTE | 2019-04-16 05:55 | MRI_ITS ---
We are attempting to reach an attending provider to discuss findings. An addendum with communication details will be sent when the communication is complete. STUDY: MRI BRAIN WITH AND WITHOUT CONTRAST REASON FOR EXAM: Female, 79 years old. vertigo, lung ca. TECHNIQUE: Standardized multiplanar fat and water weighted pulse sequences were obtained. IV Dotarem 17 was administered for the contrast portion of the examination. COMPARISON: None. FINDINGS: There is mild cerebral atrophy with widening of the extra-axial spaces and ventricular dilatation. There are multiple white matter hyperintensities, distributed throughout the deep white matter tracts of the cerebral hemispheres, consistent with moderate chronic white matter ischemic changes. There is a 5 cm restricted diffusion involving the inferior left cerebellar hemisphere and vermis with drop of signal on ADC map, consistent with acute infarction. There is minimal mass effect on the fourth ventricle without significant compression. Normal bilateral basal ganglia. Normal thalami. There is no extra-axial fluid accumulation. Normal flow voids within the major intracranial circulation suggesting patency by spin echo criteria. There is no enhancing intra-axial or extra-axial abnormality. Normal sella turcica, pituitary gland, infundibular stalk, optic chiasm and hypothalamus. Normal tectal plate and pineal gland. There are chronic white matter ischemic changes of the robin. The midbrain and medulla are otherwise normal. 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 Electronically Signed: Papi Murphy MD at 9:47 EST Tel , Service support ,
[2019-04-16] MEDS: Acetaminophen 325 MG Tablet 650 MG PO (07:57)
[2019-04-16] MEDS: Ondansetron 4 MG/2 ML Vial IV (09:04)
[2019-04-16] MEDS: 0.9% Saline Lock 10 ML Syringe IV (09:14)
--- NOTE | 2019-04-16 10:25 | ECHOD_ITS ---
Reason For Study: TIA/CVA Procedure This was a 2D Doppler, Color Flow transthoracic echocardiogram. Exam performed portable in patient room. Left Ventricle Normal size and thickness. The estimated ejection fraction is 65 %. Stage 1 diastolic dysfunction. No regional wall motion abnormalities noted. Right Ventricle Normal size and thickness. Normal systolic function. Atria Normal left atrium. Normal right atrium. Normal atrial septum. Bubble contrast study negative for right to left interatrial shunt. Mitral Valve Mild diffuse mitral valve thickening. Moderate mitral annular calcification extending into the posterior leaflet. There is no mitral valve stenosis. Tricuspid Valve Normal tricuspid valve. Trivial tricuspid valve insufficiency. Right ventricular systolic pressure estimated to be 39 mmHg. Mild pulmonary hypertension. Aortic Valve Normal aortic valve. Trisinus/trileaflet aortic valve. Pulmonic Valve The pulmonic valve is not well visualized. Great Vessels Normal aortic root. Mild atherosclerosis of the aortic arch. Normal inferior vena cava. Inferior vena cava collapse with sniff. Pericardium/Pleural No pericardial effusion. Medication Performed a rapid injection of agitated mix of 9 cc saline and 1cc air to assess for atrial septal defect. MMode/2D Measurements & Calculations LVIDd: 3.9 cm IVSd: 1.0 cm Ao root diam: 3.2 cm LVIDs: 2.7 cm LVPWd: 1.2 cm RVDd: 3.3 cm FS: 30.7 % LAV(MOD-bp): 54.8 ml LVAd ap4: 30.1 cm2 SV(MOD-sp4): 66.0 ml LAV(MOD-bp) Indexed: 29.7 ml/m2 EDV(MOD-sp4): 97.7 ml LAV(MOD-sp2): 52.9 ml EDV(sp4-el): 99.9 ml LAV(MOD-sp4): 53.1 ml LVAs ap4: 16.1 cm2 ESV(MOD-sp4): 31.7 ml ESV(sp4-el): 33.0 ml EF(MOD-sp4): 67.5 % EF(sp4-el): 66.9 % SV(sp4-el): 66.9 ml LA A4 area: 18.6 cm2 LA dimension(2D): 4.8 cm RA A4 area: 17.7 cm2 Time Measurements MV dec time: 0.33 sec Doppler Measurements & Calculations MV E max david: 89.4 cm/sec Lat Peak E' David: 9.9 cm/sec Med Peak E' David: 10.8 cm/sec MV A max david: 137.3 cm/sec E/E' lat: 9.0 E/E' med: 8.3 MV E/A: 0.65 Ao V2 max: 166.0 cm/sec LV V1 max: 129.0 cm/sec PA V2 max: 112.8 cm/sec Ao max P.0 mmHg LV V1 max P.7 mmHg TR max david: 292.4 cm/sec TR max P.2 mmHg Interpretation Summary The estimated ejection fraction is 65 %. Stage 1 diastolic dysfunction. Bubble contrast study negative for right to left interatrial shunt. Trivial tricuspid valve insufficiency. Right ventricular systolic pressure estimated to be 39 mmHg. Mild pulmonary hypertension. There is no comparison study available. The study was technically difficult. Ordering Physician: Marcella Polo Referring Physician: Capo Reveles Performed By: Yue Leiva RDCS
--- NOTE | 2019-04-16 10:25 | CDU_ITS ---
Reason For Study: CVA Rt. Velocities/BP Lt. Velocities/BP Prox CCA 67.3/13.8 cm/sec. Prox CCA 206.2/30.0 cm/sec. Mid CCA 85.6/19.0 cm/sec. Mid CCA 103.4/23.0 cm/sec. Dist CCA 97.3/17.7 cm/sec. Dist CCA 108.9/23.0 cm/sec. Prox ICA 118.5/27.2 cm/sec. Prox ICA 254.0/47.2 cm/sec. Mid ICA 127.7/30.9 cm/sec. Mid ICA 149.2/22.3 cm/sec. Dist ICA 105.8/19.9 cm/sec. Dist ICA 118.1/43.0 cm/sec. Rt. ICA/CCA = 127.7/97.3=1.3. Lt. ICA/CCA = 254.0/108.9=2.3. Prox ECA 224.3/6.7 cm/sec. Prox ECA 116.0/8.4 cm/sec. Rt. Vert. 49.1/14.4 cm/sec. Lt. Vert. NOT visualized. Right Extracranial There is intimal thickening but no significant atherosclerotic plaque noted in the right common carotid artery. There is heterogeneous, irregular atherosclerotic plaque noted in the right internal carotid artery. There is homogeneous, smooth atherosclerotic plaque noted in the right external carotid artery. Antegrade flow is noted in the right vertebral artery. There is heterogeneous, irregular atherosclerotic plaque noted in the right bulb. Left Extracranial There is intimal thickening but no significant atherosclerotic plaque noted in the left common carotid artery. There is heterogeneous, irregular atherosclerotic plaque noted in the left internal carotid artery. There is heterogeneous, smooth atherosclerotic plaque noted in the left external carotid artery. The left vertebral artery could not be visualized. There is heterogeneous, irregular atherosclerotic plaque noted in the left bulb. Procedure Carotid Duplex 35652. The study was technically difficult. PT could not stay awake and was snoring. Exam performed portable in patient room. Interpretation Summary Smooth mild calcific plaque distal right common carotid Calcific plaque with shadowing proximal right internal carotid 50-69% stenosis right proximal internal carotid (likely closer to 50%) >50% stenosis right external carotid Calcific plaque with shadowing at the proximal left internal carotid >70% stenosis left proximal internal carotid <50% stenosis left external carotid Patent and antegrade right vertebral Nonvisualized left vertebral Examination was felt to been technically difficult Ordering Physician: Marcella Polo Referring Physician: Vivek Valenzuela Performed By: Ashlyn Lindo, MITA, RVT
--- NOTE | 2019-04-16 11:15 | CASEMGMT ---
According to the [facility] website, the following are in-network tertiary facilities: [facility], [facility], [place], [facility], [facility], [place], and . Rae ALONZO CM
--- NOTE | 2019-04-16 11:17 | CASEMGMT ---
Self referral: New cancer diagnosis and Stroke Assessment- SW met with patient and completed assessment. Living situation- Patient lives alone in a 1 bedroom apartment. There is an elevator in the apartment building PCP: Dr Valenzuela Specialists: Dr Riley- Oncology Pharmacy: [id number] D[facility]: cane, walker, rollator, shower chair, grab bars, and raised toilet seat ADL's/IADL's: Patient uses her rollator in her home and outside. She does not take it to the store as it is too hard to hold on to the cart and her rollator. She has a cleaning lady, she manages her own meds, bathes herself, and cooks herself. She does not drive. Past SNF/rehab: None Past HH: None LW: Yes. She is aware it is not on file at [facility] POA: Yes. She is aware it is not on file at [facility]. Her daughter Niya Avila is her POA. She could not remember her phone number. SW met with patient. Introduced self and role at [facility]. Patient was pleasant and agreeable to assessment and depression screen. She lives by herself. Her sister in law Meenakshi Rinaldi is main support system that lives close by. She drives her to appointments and anywhere else she may need to go. She said her daughter does not live nearby. Patient is having a hard time with the news that she had a Stroke. She told SW I can't wrap my head around the fact that I had a Stroke. She said she lives alone and wants to be able to stay living alone. SW told her SW could give her a list of medical alert buttons and she said that would be helpful. SW provided emotional support. SW verbalized to patient that she has a lot on her plate right now with her recent cancer diagnosis and now the Stroke. She told SW her cancer is stage I and she isn't sure what the doctor is going to do yet. SW completed a depression screen with patient as she did have a stroke. She scored a 6 which indicates mild depression. SW asked if she would like a list with counselors that are in network with her insurance. She said she would take a list. Plan: Patient is being transferred to a tertiary care center. Justyna AMES TEAM LEADER/RESEARCH PSYCHOLOGIST
[2019-04-16] MEDS: Aspirin 81 MG TAB.CHEW PO (11:29)
[2019-04-16] MEDS: Citalopram 20 MG Tablet PO (11:29)
[2019-04-16] MEDS: Enoxaparin 40 MG/0.4 ML Syringe SC (11:29)
[2019-04-16] MEDS: Atorvastatin Calcium 80 MG Tablet PO (11:29)
[2019-04-16] MEDS: Pantoprazole Sodium 40 MG Tablet PO (11:29)
--- NOTE | 2019-04-16 11:40 | CASEMGMT ---
Addendum entered by Justyna Perez 04/16/19 13:56: SW gave patient a list of medical alert options as well as a list of counselors that are in network with her insurance. Justyna HAMMOND Original Note: SW completed a depression screen with patient as she did have a stroke. She scored a 6 which indicates mild depression. SW asked if she would like a list with counselors that are in network with her insurance. She said she would take a list. SW will give patient a list of counselors. Justyna HAMMOND
--- NOTE | 2019-04-16 13:01 | CON.PCM_ITS ---
Problem List (1) Stroke Status: Acute Reason for Consult Date of Consultation: 04/16/19 Reason for Consultation: stroke History of Present Illness: The patient is a 79 year old F PMH HTN, HLD, CAD, lung cancer admitted with acute onset dizziness. Per patient she was at the doctor's office yesterday 04/15/2019 and had acute onset dizziness and nausea, later she was sent to the ED, NIHSS on admission was 0 per ED documentation. Present patient denies any severe headache, per patient the dizziness has improved a lot from yesterday, denies any focal motor weakness, sensory loss, visual disturbances or speech disturbances. Per patient she lives alone, uses a Rollator to ambulate, does not drive and does not need any assistance for her ADLs. Per patient she was on aspirin and Plavix in the past but had a GI bleed about a month ago and since then she has not been on an antiplatelets. 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 [] Past Medical History Past Medical History (Chronic Problems): Chronic Problems (Last Reviewed 04/15/19 @ 10:[address]) Non-small cell carcinoma of left lung (Chronic) CAD (coronary artery disease) (Chronic) HTN (hypertension) (Chronic) HLD (hyperlipidemia) (Chronic) GERD (gastroesophageal reflux disease) (Chronic) GI bleed (Chronic) Medical History: Medical History (Last Reviewed 04/15/19 @ 10:[address]) Fracture of wrist S62.109A with surgical repair, plate Stomach ulcer K25.9 CAD (coronary artery disease) I25.10 Depression F32.9 Fatigue R53.83 Heartburn R12 Hyperlipidemia E78.5 Lung nodule R91.1 Hypertension I10 Allergies levofloxacin [From Levaquin] Allergy (Verified 04/15/19 12:42) Itching lisinopril Allergy (Verified 04/15/19 12:42) Other acetaminophen [From Percocet] Adverse Reaction (Verified 04/15/19 12:42) Vomiting oxycodone [From Percocet] Adverse Reaction (Verified 04/15/19 12:42) Vomiting Home Medications: Ambulatory Orders Medication Instructions Recorded Citalopram [Celexa] 20 mg PO DAILY 07/08/17 Atorvastatin Calcium [Lipitor] 80 mg PO DAILY 03/27/19 Losartan Potassium [Cozaar] 100 mg PO DAILY 03/27/19 Metoprolol Tartrate [Lopressor 25 mg PO BID 03/27/19 (Beta Casandra)] Ascorbic Acid [Vitamin C] 1,000 mg PO DAILY 04/15/19 Cholecalciferol (Vitamin D3) 2,000 unit PO DAILY 04/15/19 [Vitamin D3] Fluticasone Propionate 2 spray NASAL DAILY PRN PRN 04/15/19 Surgical History: Surgical History (Last Reviewed 04/15/19 @ 10:[address]) History of heart artery stent Z95.5 2018 [place] History of lung biopsy Z98.890 left 2019 Surgical History: - - Lung biopsy, angioplasty Psychiatric History: No pertinent psych hx 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 Lives: Alone Smoking Status: Current every day smoker Tobacco Use: Cigarettes Alcohol: None Drugs: None - *Family History Maternal Family History: Family History (Last Reviewed 04/15/19 @ 17:14 by SMAEER Burciaga) Brother Lung cancer Brother Lung cancer Father Lung cancer Mother Hypertension Paternal Family History: Family History (Last Reviewed 04/15/19 @ 17:14 by SAMEER Burciaga) Brother Lung cancer Brother Lung cancer Father Lung cancer Mother Hypertension Review of Systems Constitutional: Reports: - - Complete ROS negative except as documented in HPI Patient Problems: Active and Suspected Problems (Last Reviewed 04/15/19 @ 10:[address]) Stroke (Acute) - Physical Exam Vitals/I&O's: Vital Signs Temp Pulse Resp BP Pulse Ox 98.2 F 69 17 173/69 H 96 04/16/19 11:36 04/16/19 11:36 04/16/19 11:36 04/16/19 11:36 04/16/19 11:36 Oxygen Delivery Method Room Air Weight: 83.733 kg Body Mass Index (BMI) 33.7 Finger Stick Blood Glucose 166 Intake and Output for Last 24 Hours 04/14/19 04/15/19 04/16/19 23:59 23:59 23:59 Intake Total 620 / 720 350 / 350 Balance 620 / 720 350 / 350 General: Alert HEENT: Normocephalic Neck: Supple Lungs: Normal air movement Cardiovascular: Normal S1, Normal S2 Abdomen: Bowel Sounds Present Extremities: No cyanosis Neurological: - - Conscious, alert, AOA x3, CN II to XII grossly intact, power 5/5 both upper and lower extremities, plantars B/L flexor, no pronator drift, no sensory loss, no cerebellar signs, gait deferred, reflexes + B/L B/S/T/K/A, No NR, fundus not visualized, NIHSS 0 at present Psych/Mental Status: Normal Affect Laboratory Results 04/15/19 13:18: WBC Cancelled, Corrected WBC Cancelled, RBC Cancelled, Hgb Cancelled, Hct Cancelled, MCV Cancelled, MCH Cancelled, MCHC Cancelled, RDW Std Deviation Cancelled, RDW Coeff of Dnagelo Cancelled, Plt Count Cancelled, MPV Cancelled, Immature Gran % (Auto) Cancelled, Neut % (Auto) Cancelled, Lymph % (Auto) Cancelled, [place] % (Auto) Cancelled, Eos % (Auto) Cancelled, Baso % (Auto) Cancelled, Absolute Neuts (auto) Cancelled, Absolute Lymphs (auto) Cancelled, Total Counted Cancelled, Neutrophils % (Manual) Cancelled, Band Neutrophils % Cancelled, Lymphocytes % (Manual) Cancelled, Monocytes % (Manual) Cancelled, Eosinophils % (Manual) Cancelled, Basophils % (Manual) Cancelled, Metamyelocytes % Cancelled, Myelocytes % Cancelled, Promyelocytes % Cancelled, Blast Cells % Cancelled, Plasma Cell % (Manual) Cancelled, Other Cells % Cancelled, Nucleated RBC % Cancelled, Nucleated RBCs/100 WBC Cancelled, Differential Comment Cancelled, Diff Path Review Cancelled, Hypersegmented Neuts Cancelled, Atypical Lymphocytes Cancelled, Reactive Lymphocytes Cancelled, Smudge Cells Cancelled, Toxic Granulation Cancelled, Toxic Vacuolation Cancelled, Dohle Bodies Cancelled, Derek Rods Cancelled, Platelet Estimate Cancelled, Plt Morphology Comment Cancelled, RBC Morphology Cancelled, Polychromasia Cancelled, Hypochromasia Cancelled, Poikilocytosis Cancelled, Basophilic Stippling Cancelled, Anisocytosis Cancelled, Microcytosis Cancelled, Macrocytosis Cancelled, Spherocytes Cancelled, Sickle Cells Cancelled, Target Cells Cancelled, Tear Drop Cells Cancelled, Ovalocytes Cancelled, Stomatocytes Cancelled, [place] Bodies Cancelled, Alvarado Cells Cancelled, Bite Cells Cancelled, Crenated Cell Cancelled, Acanthocytes (Spur) Cancelled, Rouleaux Cancelled, Schistocytes Cancelled 04/15/19 13:18: PT Cancelled, INR Cancelled, APTT Cancelled 04/15/19 13:18: Sodium 135 L, Potassium 3.7, Chloride 102, Carbon Dioxide 24.0, Anion Gap 9, BUN 13, Creatinine 0.58, Estim Creat Clear Calc 36.67, Est GFR (MDRD) Af Amer 129, Est GFR (MDRD) Non-Af 106, BUN/Creatinine Ratio 22.3 H, Glucose 153 H, Calcium 8.9, Troponin I < 0.015 04/15/19 13:50: WBC 10.8, RBC 3.17 L, Hgb 8.8 L, Hct 28.1 L, MCV 88.6, MCH 27.8, MCHC 31.3 L, RDW Std Deviation 50.6 H, RDW Coeff of Dangelo 15.4 H, Plt Count 297, MPV 9.6, Immature Gran % (Auto) 0.600, Neut % (Auto) 81.8 H, Lymph % (Auto) 9.7 L, [place] % (Auto) 6.9, Eos % (Auto) 0.6, Baso % (Auto) 0.4, Absolute Neuts (auto) 8.8 H, Absolute Lymphs (auto) 1.04, Nucleated RBC % 0 04/15/19 13:50: PT 13.4, INR 1.0, APTT 28.3 Current Medications Acetaminophen (Tylenol) 650 mg PO Q6H PRN PRN PRN Reason: Pain Score 1-3/Temp > 100.7 F Last Admin: 04/16/19 07:57 Dose: 650 mg Documented by: Aspirin (Aspirin, Baby) 81 mg PO DAILY@0800 [facility] Last Admin: 04/16/19 11:29 Dose: 81 mg Documented by: Atorvastatin Calcium (Lipitor) 80 mg PO DAILY [facility] Last Admin: 04/16/19 11:29 Dose: 80 mg Documented by: Citalopram Hydrobromide (Celexa) 20 mg PO DAILY [facility] Last Admin: 04/16/19 11:29 Dose: 20 mg Documented by: Diazepam (Valium) 5 mg PO TID [facility] Last Admin: 04/16/19 05:00 Dose: 5 mg Documented by: Enoxaparin Sodium (Lovenox) 40 mg SC DAILY@1000 [place] Last Admin: 04/16/19 11:29 Dose: 40 mg Documented by: Sodium Chloride () 500 mls @ 999 mls/hr IV .Q31M ONE Last Infusion: 04/15/19 14:26 Dose: Infused Documented by: Ondansetron HCl (Zofran) 4 mg IV Q6H PRN PRN PRN Reason: NAUSEA/VOMITING Last Admin: 04/16/19 09:04 Dose: 4 mg Documented by: Pantoprazole Sodium (Protonix) 40 mg PO BID [facility] Last Admin: 04/16/19 11:29 Dose: 40 mg Documented by: Sodium Chloride () 10 - 40 ml IV UD PRN PRN Reason: SALINE FLUSH Last Admin: 04/16/19 09:14 Dose: 10 ml Documented by: Assessment/Plan All Active Problems (Last Reviewed 04/15/19 @ 10:[address]) Stroke (Acute) The patient is a 79 year old F PMH HTN, HLD, CAD, lung cancer admitted with acute onset dizziness. Per patient she was at the doctor's office yesterday 04/15/2019 and had acute onset dizziness and nausea, later she was sent to the ED, NIHSS on admission was 0 per ED documentation. Present patient denies any severe headache, per patient the dizziness has improved a lot from yesterday, denies any focal motor weakness, sensory loss, visual disturbances or speech disturbances. Per patient she lives alone, uses a Rollator to ambulate, does not drive and does not need any assistance for her ADLs. Per patient she was on aspirin and Plavix in the past but had a GI bleed about a month ago and since then she has not been on an antiplatelets. 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 once daily. Bleeding risk discussed in detail with the patient -Lipitor 40 mg PO q hs -MRI brain images reviewed -Check CTA head/neck -HbA1c , LDL -TTE -Frequent Neurochecks -Patient to be transferred to tertiary center with neurosurgery and neuro ICU care for further observation in the event if there is swelling or worsening mass-effect in the posterior circulation, may need occipital decompressive craniectomy at that time -30-day event recorder on discharge -Stroke risk factors discussed and stroke education provided -Permissive HTN for 24 hrs -MCC goal BP < 130/80 mmHg, goal LDL < 70 and goal Hba1c < 7% -PT/OT/ST -GI/DVT prophylaxis -Fall precautions -Further medical management per hospitalist team -Please call with questions if any -Follow-up with neurology in 4 weeks -Thank you for allowing us to participate in patient's care and management This note has been generated using [employer] dictation software. It may contain incorrect words, spellings and punctuation that were not noted in the review of the note prior to signing Code Visit Inpatient E&M: 97567 Init Hosp L3
--- NOTE | 2019-04-16 13:06 | CT_ITS ---
STUDY: CTA HEAD AND NECK WITH CONTRAST REASON FOR EXAM: Female, 79 years old. History of acute left cerebellar infarct. RADIATION DOSAGE (If Supplied By Facility): CTDIvol = ( 30.37 ) mGy, DLP = ( 1453.79 ) mGycm TECHNIQUE: CT angiography was performed with a multi-detector CT scanner. Data acquisition was obtained from the skull base through the vertex following intravenous administration of IV Isovue 370 100. MIP images were reconstructed from the axial data set. Post-processing of the angiographic images was performed, with multiplanar reformation and 3D reconstruction. Individualized dose optimization techniques were used for this CT. COMPARISON: No relevant priors. FINDINGS: Normal bilateral petrous carotid arteries. There is calcified plaque formation of the right cavernous carotid artery, without a cross-sectional luminal stenosis. There is calcified plaque formation of the left cavernous carotid artery, without a cross-sectional luminal stenosis. Normal right A1 segments of the anterior cerebral artery. Normal left A1 segments of the anterior cerebral artery. Normal intact anterior communicating artery (ACOM). Normal bilateral A2 segments of the anterior cerebral arteries. Normal right M1 and M2 segments of the middle cerebral arteries, with a normal M1 bifurcation. Normal left M1 and M2 segments of the middle cerebral arteries, with a normal M1 bifurcation. Normal right posterior communicating artery (PCOM). Normal left posterior communicating artery (PCOM). Normal bilateral vertebral arteries. Normal basilar artery with a normal basilar bifurcation. The visualized bilateral superior cerebellar (SCA) arteries are normal. Normal bilateral P1, P2 and visualized P3 segments of the posterior cerebral arteries. There is no demonstrated aneurysm of the [place] of [place]. As compared to prior study, there now is evidence of decreased attenuation with edema in the left cerebellar hemisphere in keeping with the MRI findings of acute infarction. AORTIC ARCH: There is atherosclerotic calcific plaque formation of the aortic arch and great vessels arising from the aortic arch, without a hemodynamically significant stenosis. There is a bovine origin of the great vessels with a common origin of the brachiocephalic and left common carotid artery. Normal origin of the left subclavian artery. Normal origins of the brachiocephalic, left common carotid, and left subclavian arteries. RIGHT CAROTID ARTERIES: Normal right common carotid artery (CCA). Normal right common carotid bulb. There is extensive atherosclerotic plaque formation of the origin of the right internal carotid artery with an estimated stenosis of greater than 70%. Normal visualized cervical portion of the right internal carotid artery. Normal origin of the right external carotid artery (ECA). LEFT CAROTID ARTERIES: Normal left common carotid artery (CCA). Normal left common carotid bulb. There is extensive atherosclerotic plaque formation of the origin of the left internal carotid artery with an estimated stenosis of greater than 70%. Normal visualized cervical portion of the left internal carotid artery. Normal origin of the left external carotid artery (ECA). VERTEBRAL ARTERIES: Normal bilateral vertebral arteries. 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 New evidence of the left cerebellar hemisphere infarction. Electronically Signed: Babak Edmond, at 14:21 EST , Service support ,
--- NOTE | 2019-04-16 13:27 | PCM.DC.SUM ---
<Tiny Dhillon - Last Filed: 04/16/19 13:48> Discharge Date and Diagnosis Date of Admission: 04/15/19 Date of Discharge: 04/16/19 - Primary Discharge Diagnosis Active and Suspected Problems (Last Reviewed 04/15/19 @ 10:[address]) 1. 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 Recent GI bleed secondary to bleeding ulcer 4. CAD 5. Chronic normocytic anemia 6. Hypertension 7. Hyperlipidemia 8. Tobacco dependence 9. Depression - Secondary Discharge Diagnosis Chronic Problems (Last Reviewed 04/15/19 @ 10:[address]) Non-small cell carcinoma of left lung (Chronic) CAD (coronary artery disease) (Chronic) HTN (hypertension) (Chronic) HLD (hyperlipidemia) (Chronic) GERD (gastroesophageal reflux disease) (Chronic) GI bleed (Chronic) Hospital Course and Treatment Imaging Results: 04/16/19 05:55 Brain W/WO Contrast [MRI] Routine 04/16/19 10:25 Echo Complete [ECHO] Urgent 04/16/19 13:06 CTA Head AND Neck W/ Contrast [CT] Urgent Dr. Vallecillo- neurology Operations: None Procedures: None Summary of Care Provided: The patient is a 79 year old F admitted 04/15/2019 due to dizziness and nausea. 1. 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 Neurology consulted. Continue aspirin, statin. CTA of head and neck pending at discharge. Neurology recommending transfer to tertiary facility with neurosurgery availability for close observation of any worsening of mass-effect. Patient transferred to [facility] for further neuro evaluation/monitoring. NIH 0 at time of discharge. 2. 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 Riley. 3. Recent GI bleed secondary to bleeding ulcer-aspirin, Plavix was being held as outpatient. Continue PPI. 4. CAD-continue statin, metoprolol, losartan. Aspirin Plavix being held as outpatient as noted above. 5. Chronic normocytic anemia-appears at baseline. 6. Hypertension-stable, continue losartan, metoprolol regimen. 7. Hyperlipidemia-continue statin. 8. Tobacco dependence-encouraged smoking cessation. 9. Depression-continue home citalopram regimen. Patient seen and examined prior to discharge. Physical assessment as noted below. Patient is stable for discharge with follow up recommendations as noted above. This patient was seen by SAMEER Burciaga under the supervision of Dr. Polo. - Physical Exam Vitals/I&O's: Vital Signs Temp Pulse Resp BP Pulse Ox 98.2 F 69 17 173/69 H 96 04/16/19 11:36 04/16/19 11:36 04/16/19 11:36 04/16/19 11:36 04/16/19 11:36 Oxygen Delivery Method Room Air Weight: 184 lb 9.6 oz Body Mass Index (BMI) 33.7 Finger Stick Blood Glucose 166 Intake and Output for Last 24 Hours 04/14/19 04/15/19 04/16/19 23:59 23:59 23:59 Intake Total 620 / 720 350 / 350 Balance 620 / 720 350 / 350 General: Alert, Oriented x3, Cooperative HEENT: Atraumatic, PERRLA, EOMI, Normocephalic Oral: Dry Mucosa Neck: Supple, No JVD, Negative Carotid Bruits Lungs: Clear to auscultation, Normal air movement Cardiovascular: Regular rate, Regular Rhythm, Normal S1, Normal S2, No murmurs Abdomen: Bowel Sounds Present, Soft, Non Tender Extremities: No clubbing, No cyanosis, No edema, Capillary Refill Less than 3 Seconds Skin: No rashes, No breakdown Musculoskeletal: No Tenderness to Palpation of Joints or Extremities Neurological: Cranial nerves II-XII grossly intact, Neuro grossly intact Psych/Mental Status: Normal Affect, Appropriate Laboratory Results 04/15/19 13:18: WBC Cancelled, Corrected WBC Cancelled, RBC Cancelled, Hgb Cancelled, Hct Cancelled, MCV Cancelled, MCH Cancelled, MCHC Cancelled, RDW Std Deviation Cancelled, RDW Coeff of Dangelo Cancelled, Plt Count Cancelled, MPV Cancelled, Immature Gran % (Auto) Cancelled, Neut % (Auto) Cancelled, Lymph % (Auto) Cancelled, [place] % (Auto) Cancelled, Eos % (Auto) Cancelled, Baso % (Auto) Cancelled, Absolute Neuts (auto) Cancelled, Absolute Lymphs (auto) Cancelled, Total Counted Cancelled, Neutrophils % (Manual) Cancelled, Band Neutrophils % Cancelled, Lymphocytes % (Manual) Cancelled, Monocytes % (Manual) Cancelled, Eosinophils % (Manual) Cancelled, Basophils % (Manual) Cancelled, Metamyelocytes % Cancelled, Myelocytes % Cancelled, Promyelocytes % Cancelled, Blast Cells % Cancelled, Plasma Cell % (Manual) Cancelled, Other Cells % Cancelled, Nucleated RBC % Cancelled, Nucleated RBCs/100 WBC Cancelled, Differential Comment Cancelled, Diff Path Review Cancelled, Hypersegmented Neuts Cancelled, Atypical Lymphocytes Cancelled, Reactive Lymphocytes Cancelled, Smudge Cells Cancelled, Toxic Granulation Cancelled, Toxic Vacuolation Cancelled, Dohle Bodies Cancelled, Derek Rods Cancelled, Platelet Estimate Cancelled, Plt Morphology Comment Cancelled, RBC Morphology Cancelled, Polychromasia Cancelled, Hypochromasia Cancelled, Poikilocytosis Cancelled, Basophilic Stippling Cancelled, Anisocytosis Cancelled, Microcytosis Cancelled, Macrocytosis Cancelled, Spherocytes Cancelled, Sickle Cells Cancelled, Target Cells Cancelled, Tear Drop Cells Cancelled, Ovalocytes Cancelled, Stomatocytes Cancelled, [place] Bodies Cancelled, Hermila Cells Cancelled, Bite Cells Cancelled, Crenated Cell Cancelled, Acanthocytes (Spur) Cancelled, Rouleaux Cancelled, Schistocytes Cancelled 04/15/19 13:18: PT Cancelled, INR Cancelled, APTT Cancelled 04/15/19 13:18: Sodium 135 L, Potassium 3.7, Chloride 102, Carbon Dioxide 24.0, Anion Gap 9, BUN 13, Creatinine 0.58, Estim Creat Clear Calc 36.67, Est GFR (MDRD) Af Amer 129, Est GFR (MDRD) Non-Af 106, BUN/Creatinine Ratio 22.3 H, Glucose 153 H, Calcium 8.9, Troponin I < 0.015 04/15/19 13:50: WBC 10.8, RBC 3.17 L, Hgb 8.8 L, Hct 28.1 L, MCV 88.6, MCH 27.8, MCHC 31.3 L, RDW Std Deviation 50.6 H, RDW Coeff of Dangelo 15.4 H, Plt Count 297, MPV 9.6, Immature Gran % (Auto) 0.600, Neut % (Auto) 81.8 H, Lymph % (Auto) 9.7 L, [place] % (Auto) 6.9, Eos % (Auto) 0.6, Baso % (Auto) 0.4, Absolute Neuts (auto) 8.8 H, Absolute Lymphs (auto) 1.04, Nucleated RBC % 0 04/15/19 13:50: PT 13.4, INR 1.0, APTT 28.3 04/15/19 13:50: Hemoglobin A1c Pending Current Medications Acetaminophen (Tylenol) 650 mg PO Q6H PRN PRN PRN Reason: Pain Score 1-3/Temp > 100.7 F Last Admin: 04/16/19 07:57 Dose: 650 mg Documented by: Aspirin (Aspirin, Baby) 81 mg PO DAILY@0800 [facility] Last Admin: 04/16/19 11:29 Dose: 81 mg Documented by: Atorvastatin Calcium (Lipitor) 80 mg PO DAILY [facility] Last Admin: 04/16/19 11:29 Dose: 80 mg Documented by: Citalopram Hydrobromide (Celexa) 20 mg PO DAILY [facility] Last Admin: 04/16/19 11:29 Dose: 20 mg Documented by: Diazepam (Valium) 5 mg PO TID [facility] Last Admin: 04/16/19 05:00 Dose: 5 mg Documented by: Enoxaparin Sodium (Lovenox) 40 mg SC DAILY@1000 [facility] Last Admin: 04/16/19 11:29 Dose: 40 mg Documented by: Sodium Chloride () 500 mls @ 999 mls/hr IV .Q31M ONE Last Infusion: 04/15/19 14:26 Dose: Infused Documented by: Ondansetron HCl (Zofran) 4 mg IV Q6H PRN PRN PRN Reason: NAUSEA/VOMITING Last Admin: 04/16/19 09:04 Dose: 4 mg Documented by: Pantoprazole Sodium (Protonix) 40 mg PO BID [facility] Last Admin: 04/16/19 11:29 Dose: 40 mg Documented by: Sodium Chloride () 10 - 40 ml IV UD PRN PRN Reason: SALINE FLUSH Last Admin: 04/16/19 09:14 Dose: 10 ml Documented by: Home Medications: Medications to take at Discharge Citalopram [Celexa] 20 mg PO DAILY 07/08/17 Atorvastatin Calcium [Lipitor] 80 mg PO DAILY 03/27/19 Losartan Potassium [Cozaar] 100 mg PO DAILY 03/27/19 Metoprolol Tartrate [Lopressor (Beta Casandra)] 25 mg PO BID 03/27/19 Ascorbic Acid [Vitamin C] 1,000 mg PO DAILY 04/15/19 Cholecalciferol (Vitamin D3) [Vitamin D3] 2,000 unit PO DAILY 04/15/19 Fluticasone Propionate 2 spray NASAL DAILY PRN PRN 04/15/19 Primary Care Physician: Quan Valenzuela MD [Primary Care Provider] - Disposition: Acute care Hospital Minutes spent on discharge:: 35 Patient Condition:: Stable Medical Necessity - Tobacco Use Smoking Status: Current every day smoker Tobacco Use: Cigarettes Meaningful Use Info Meaningful Use Diagnoses (Choose all that apply): Ischemic CVA - CVA Therapy Assessed for PT,OT and/or ST?: Yes - Ischemic Stroke Antithrombotic order at d/c?: Yes Dx of Atrial fib/flutter?: No Statins at discharge?: Yes Primary Dx Acute Ischemic CVA?: Yes IV tPA ordered during stay?: No Reason IV t-PA not ordered: Medical Contraindication <[place] - Last Filed: 04/16/19 14:54> Discharge Date and Diagnosis - Secondary Discharge Diagnosis Chronic Problems (Last Reviewed 04/15/19 @ 10:[address]) Non-small cell carcinoma of left lung (Chronic) CAD (coronary artery disease) (Chronic) HTN (hypertension) (Chronic) HLD (hyperlipidemia) (Chronic) GERD (gastroesophageal reflux disease) (Chronic) GI bleed (Chronic) Hospital Course and Treatment Imaging Results: 04/16/19 05:55 Brain W/WO Contrast [MRI] Routine 04/16/19 10:25 Echo Complete [ECHO] Urgent 04/16/19 13:06 CTA Head AND Neck W/ Contrast [CT] Urgent Summary of Care Provided: The patient is a 79 year old F past medical history of hypertension, hyperlipidemia and newly diagnosed non-small cell carcinoma of the left lung, stage I, follows with oncology who comes in with intractable dizziness and nausea which was of sudden onset, worse whilst in the primary care doctor's office. Patient was admitted to the telemetry floor and MRI of the brain showed large left cerebellar stroke with mild mass-effect on the fourth ventricle. Neurology was consulted and recommended transfer to tertiary center. CT of the head and neck shows stenosis at the right and left carotid arteries of 70%. Patient was transferred to a tertiary facility with neurosurgery availability for close monitoring for worsening mass-effect. Patient was seen and examined at the time of discharge. She denied any new complaint. She still felt dizzy. Her gait was unstable. His NIH SS score was 0 Physical exam: General: Alert, Oriented x3, Cooperative, No apparent distress HEENT: Atraumatic, PERRLA, EOMI, Normocephalic Oral: Moist Mucosa Neck: Supple Lungs: Diminished Air entry at the lung bases. Cardiovascular: Normal S1, Normal S2, No murmurs, Irregular Rate, Tachycardic Abdomen: Bowel Sounds Present, Soft, Non Tender, Non-Distended, No Hepato-splenomegaly Extremities: No edema Skin: No rashes Musculoskeletal: No Tenderness to Palpation of Joints or Extremities Lymphatic: No Cervical, Supraclavicular, or Inguinal Adenopathy Neurological: Cranial nerves II-XII grossly intact, alert and oriented x3, power 5/5 in all extremities, normal tone, no cerebellar signs Psych/Mental Status: Normal Affect, Appropriate - Physical Exam Vitals/I&O's: Vital Signs Temp Pulse Resp BP Pulse Ox 98.2 F 69 17 173/69 H 96 04/16/19 11:36 04/16/19 11:36 04/16/19 11:36 04/16/19 11:36 04/16/19 11:36 Oxygen Delivery Method Room Air Weight: 83.733 kg Body Mass Index (BMI) 33.7 Finger Stick Blood Glucose 166 Intake and Output for Last 24 Hours 04/14/19 04/15/19 04/16/19 23:59 23:59 23:59 Intake Total 620 / 720 350 / 350 Balance 620 / 720 350 / 350 Laboratory Results 04/15/19 13:50: Hemoglobin A1c 6.0 Current Medications Acetaminophen (Tylenol) 650 mg PO Q6H PRN PRN PRN Reason: Pain Score 1-3/Temp > 100.7 F Last Admin: 04/16/19 07:57 Dose: 650 mg Documented by: Aspirin (Aspirin, Baby) 81 mg PO DAILY@0800 [facility] Last Admin: 04/16/19 11:29 Dose: 81 mg Documented by: Atorvastatin Calcium (Lipitor) 80 mg PO DAILY [facility] Last Admin: 04/16/19 11:29 Dose: 80 mg Documented by: Citalopram Hydrobromide (Celexa) 20 mg PO DAILY [facility] Last Admin: 04/16/19 11:29 Dose: 20 mg Documented by: Diazepam (Valium) 5 mg PO TID [facility] Last Admin: 04/16/19 14:02 Dose: 5 mg Documented by: Enoxaparin Sodium (Lovenox) 40 mg SC DAILY@1000 [facility] Last Admin: 04/16/19 11:29 Dose: 40 mg Documented by: Sodium Chloride () 500 mls @ 999 mls/hr IV .Q31M ONE Last Infusion: 04/15/19 14:26 Dose: Infused Documented by: Ondansetron HCl (Zofran) 4 mg IV Q6H PRN PRN PRN Reason: NAUSEA/VOMITING Last Admin: 04/16/19 09:04 Dose: 4 mg Documented by: Pantoprazole Sodium (Protonix) 40 mg PO BID [facility] Last Admin: 04/16/19 11:29 Dose: 40 mg Documented by: Sodium Chloride () 10 - 40 ml IV UD PRN PRN Reason: SALINE FLUSH Last Admin: 04/16/19 09:14 Dose: 10 ml Documented by: Code Visit Inpatient E&M: [id number] Disch Hosp
--- NOTE | 2019-04-16 14:00 | PHA.DC.MR ---
Pharmacy Service has performed discharge medication reconciliation for this patient. Home Medications Citalopram [Celexa] 20 mg PO DAILY 07/08/17 Atorvastatin Calcium [Lipitor] 80 mg PO DAILY 03/27/19 Losartan Potassium [Cozaar] 100 mg PO DAILY 03/27/19 Metoprolol Tartrate [Lopressor (Beta Casandra)] 25 mg PO BID 03/27/19 Ascorbic Acid [Vitamin C] 1,000 mg PO DAILY 04/15/19 Cholecalciferol (Vitamin D3) [Vitamin D3] 2,000 unit PO DAILY 04/15/19 Fluticasone Propionate 2 spray NASAL DAILY PRN PRN 04/15/19 The patient's discharge medication list was reviewed for discrepancies and discrepancies were resolved.
== END 2019-04-16 16:12 | disposition short-term general hospital (02) | DRG 64 ==
LOC: ED 13:26 → PCU 15:29
PROVIDERS: Psychiatry & Neurology Neurology; Admitting Provider Internal Medicine; Emergency Provider Emergency Medicine; Family Provider Family Medicine; PCP Family Medicine; Referring Provider Internal Medicine; Visit Provider Internal Medicine
DX: I63.9 Cerebral infarction, unspecified (principal); K27.4 Chronic or unspecified peptic ulcer, site unspecified, with hemorrhage; C34.12 Malignant neoplasm of upper lobe, left bronchus or lung; I65.23 Occlusion and stenosis of bilateral carotid arteries; I25.10 Atherosclerotic heart disease of native coronary artery without angina pectoris; E78.5 Hyperlipidemia, unspecified; I10 Essential (primary) hypertension; K21.9 Gastro-esophageal reflux disease without esophagitis; F32.9 Major depressive disorder, single episode, unspecified; D64.9 Anemia, unspecified; F17.210 Nicotine dependence, cigarettes, uncomplicated; Z79.82 Long term (current) use of aspirin; Z79.899 Other long term (current) drug therapy; Z80.1 Family history of malignant neoplasm of trachea, bronchus and lung; Z82.49 Family history of ischemic heart disease and other diseases of the circulatory system
CPT/HCPCS: 36415; 70450; 70496; 70498; 70553; 71045; 80048; 80053; 82607; 82728; 82746; 83036; 83540; 83550; 83615; 84484; 85025; 85610; 85730; 93005; 93306; 93880; 99285; 99406; A9575; Q9967; A4216; J2405

== ENCOUNTER → 2019-07-14 15:52 | Outpatient (CLI) | payer MEDICARE, SELFPAY ==
[2019-04-15 16:18] VITALS: BMI 33.7
[2019-07-01 13:57] VITALS: BMI 33.1
--- NOTE | 2019-07-14 15:57 | CT_ITS ---
STUDY: CT ABDOMEN WITH CONTRAST REASON FOR EXAM: Female, 79 years old. LUNG CA RADIATION DOSAGE (If Supplied By Facility): CTDIvol = ( 14.28 ) mGy, DLP = ( 847.01 ) mGycm TECHNIQUE: Transaxial images were obtained post I.V. administration of Oral and amp; IV Readi-CAT and amp; 100mL Isovue-300, and with oral contrast. Sagittal and coronal images were reconstructed. Individualized dose optimization techniques were used for this CT. COMPARISON: Previous study of 03/24/2019 FINDINGS: The visualized lung bases are unremarkable. The heart size appears borderline. Coronary arterial calcifications or stents are noted. Normal liver. Normal gallbladder and extrahepatic biliary system. Normal spleen. Normal pancreas. Normal bilateral adrenal glands. Normal right kidney. There is a subcentimeter probable cyst of the left kidney, stable in the interval. Normal visualized stomach. Normal small intestine. Normal colon. The appendix is not in the [id number] of the study. There are calcified plaques of the abdominal aorta. Normal inferior vena cava. Normal retroperitoneum. Normal abdominal wall. There are degenerative changes of the visualized thoracolumbar spine. CT/Abdomen WITH IV Contrast IMPRESSION: 1. Subcentimeter probable cyst of the left kidney, stable in the interval. 2. Degenerative changes of the visualized thoracolumbar spine. 3. There is no evidence of free intra-abdominal air, fluid, or inflammatory process. Electronically Signed: Matias Garcia MD at 18:58 EST , Service support ,
--- NOTE | 2019-07-14 15:57 | CT_ITS ---
STUDY: CT CHEST WITH CONTRAST REASON FOR EXAM: Female, 79 years old. LUNG CA RADIATION DOSAGE (If Supplied By Facility): CTDIvol = ( 14.28 ) mGy, DLP = ( 847.01 ) mGycm TECHNIQUE: Transaxial imaging was performed following intravenous administration of Oral and amp; IV Readi-CAT and amp; 100mL Isovue-300. Individualized dose optimization techniques were used for this CT. COMPARISON: None. FINDINGS: There is a lobular mass of the posterior left upper lobe measuring 3.5 x 3.3 x 2.6 cm. This is significantly increased in size from the previous study where it measured 2.3 x 2.1 cm. There is no demonstrated pleural abnormality. There is mild cardiomegaly. Coronary arterial calcifications are present. There is no pericardial effusion. Normal mediastinum. Normal hilar regions. Normal enhanced pulmonary arteries. There are calcified plaques of the thoracic aorta. There is an increased thoracic kyphosis. There are diffuse degenerative changes of the visualized thoracolumbar spine. No lytic or blastic osseous changes are noted. There is orthopedic hardware of the visualized proximal right humerus. Abdominal findings are reported separately. CT/Chest WITH Contrast IMPRESSION: 1. There is a lobular mass in the posterior left upper lobe measuring 3.5 x 3.3 x 2.6 cm, increased in size from the previous study where it measured 2.3 x 2.1 cm. 2. Mild cardiomegaly. Coronary arterial calcifications are present. 3. Calcified plaques of the thoracic aorta. 4. Increased thoracic kyphosis. Diffuse degenerative changes of the visualized thoracolumbar spine. Electronically Signed: Matias Garcia MD at 19:05 EST , Service support ,
[2019-07-14 16:20] LABS: CREATININE FINGERSTICK 0.7 mg/dL (0.55-1.02)
== END ==
LOC: CT 15:53
PROVIDERS: PCP Family Medicine; Referring Provider Student in an Organized Health Care Education/Training Program; Visit Provider Student in an Organized Health Care Education/Training Program
DX: C34.90 Malignant neoplasm of unspecified part of unspecified bronchus or lung (principal)
CPT/HCPCS: 71260; 74160; Q9967

== ENCOUNTER → 2019-10-15 15:20 | Outpatient (CLI) | payer MEDICARE, SELFPAY ==
[2019-04-15 16:18] VITALS: BMI 33.7
[2019-07-01 13:57] VITALS: BMI 33.1
[2019-10-15 17:45] LABS: Absolute Lymphocyte Count 1.47 X10^3/uL (0.83-4.51); Absolute Neutrophil Count 5.2 X10^3/uL (2.0-7.7); Basophil# 0.04 X10^3/uL; Basophil% 0.5 % (0-1); Eosinophil# 0.16 X10^3/uL; Eosinophils% 2.1 % (0-5); Hemoglobin 9.9 g/dL (12.0-15.0); Lymphocyte # 1.47 X10^3/ul (4.0); Lymphocyte % 19.4 % (19-41); Mean Corpuscular Hgb 25.1 pg (27.0-32.0); Mean Corpuscular Volume 83.5 fL (81-99); Mean Platelet Vol. 10.7 fl (6.2-12.0); Monocyte# 0.72 X10^3/uL; Monocyte% 9.5 % (0-10); NRBC Flagged by Analyzer 0 % (0-5); Neutrophil # 5.15 X10^3/uL (2.7-7.7); Neutrophil % 68.1 % (47-70); Platelet Count 274 K/mm3 (150-450); RBC Distribution Width CV 18.7 % (11.6-14.6); RBC Distribution Width SD 57.2 fl (35.1-43.9); RET-HE 28.2 pg (30-35); Red Blood Count 3.95 M/mm3 (4.2-5.4); Reticulocyte Count 1.33 % (0.5-1.5); White Blood Count 7.6 K/mm3 (4.4-11.0)
[2019-10-15 18:21] LABS: ALB/GLOB Ratio 0.9 RATIO (0.9-2.4); AST(SGOT) 19 U/L (15-37); Alanine Aminotransfer ALT/SGPT 23 U/L (13-56); Albumin, Serum 3.2 g/dL (3.2-5.0); Alkaline Phosphatase 118 U/L (45-117); Anion Gap 7 (5-15); BUN 23 mg/dL (7-18); BUN/Creat Ratio 40.2 RATIO (10-20); Chloride 105 mmol/L (98-107); Creatinine, Serum 0.57 mg/dL (0.55-1.02); EST Glomerular Filtration Rate 108 mL/min (>60); Est Glom Filt Rate - Afr Amer 131 mL/min (>60); Ferritin 5 ng/mL (8-252); Globulin 3.5 g/dL (2.2-4.2); Glucose 91 mg/dL (74-106); Iron 19 ug/dL (50-170); Potassium 3.9 mmol/L (3.5-5.1); Protein, Total 6.7 g/dL (6.4-8.2); Sodium Level 139 mmol/L (136-145); Thyroid Stim Hormone (TSH) 1.99 uIU/mL (0.358-3.74)
[2019-10-15 18:25] LABS: Vitamin D,25 Hydroxy 43.8 ng/mL
== END ==
PROVIDERS: PCP Family Medicine; Visit Provider Family Medicine
DX: K92.2 Gastrointestinal hemorrhage, unspecified (principal); M81.0 Age-related osteoporosis without current pathological fracture
CPT/HCPCS: 36415; 80053; 82306; 82728; 83540; 84443; 85025; 85045

== ENCOUNTER → 2019-10-29 15:25 | Outpatient (CLI) | payer MEDICARE, SELFPAY ==
[2019-04-15 16:18] VITALS: BMI 33.7
[2019-07-01 13:57] VITALS: BMI 33.1
--- NOTE | 2019-10-29 15:27 | RAD_ITS ---
STUDY: X-RAY - ABDOMEN/PELVIS REASON FOR EXAM: Female, 79 years old. Pain of upper abdomen TECHNIQUE: 5 images of the abdomen were obtained. COMPARISON: CT of the abdomen dated July 14, 2019 FINDINGS: Normal visualized lung bases. There is an unremarkable bowel gas pattern. There is no demonstrated free abdominal air. Normal soft tissue structures. There are diffuse degenerative changes of the visualized lumbar spine. There are postsurgical changes of the left proximal femur. RAD/Abd Inc Decub and/or Erect IMPRESSION: Nonspecific bowel gas pattern. Electronically Signed: Janis Daugherty MD at 15:48 EDT Tel , Service support ,
== END ==
PROVIDERS: PCP Family Medicine; Referring Provider Family Medicine; Visit Provider Family Medicine
DX: R10.10 Upper abdominal pain, unspecified (principal)
CPT/HCPCS: 74019

== ENCOUNTER → 2019-11-26 12:38 | Outpatient (CLI) | payer MEDICARE, SELFPAY ==
[2019-04-15 16:18] VITALS: BMI 33.7
[2019-07-01 13:57] VITALS: BMI 33.1
--- NOTE | 2019-11-26 12:39 | CT_ITS ---
STUDY: CT CHEST WITH CONTRAST REASON FOR EXAM: Female, 79 years old. LUNG CANCER F/U. prior radiation RADIATION DOSAGE (If Supplied By Facility): CTDIvol = ( 14.00 ) mGy, DLP = ( 395.45 ) mGycm TECHNIQUE: Transaxial imaging was performed following intravenous administration of IV 100mL Isovue-370. Individualized dose optimization techniques were used for this CT. COMPARISON: CT of the chest dated October 26, 2019 FINDINGS: 1. Lobular partially spiculated mass in the posterior lateral aspect of the left upper lobe in the mid third region with attachment to the underlying pleura currently measures 3.02 x 3.06 cm compared to the previous measurement of 3.12 x 2.97 cm which is essentially unchanged when accounting for slight differences in measuring technique. The prior measurement was obtained on image 79/325 series 8 and on this current study 31/117 series 4. The mass is malignant appearing. Correlate with PET/CT exam of April 07, 2019. 2. No additional or new nodules are seen in either lung. 3. COPD/hyperinflated lungs and cystic emphysematous changes reidentified 4. No pneumonic consolidation or pleural effusion 5. Mild groundglass edema is present. 6. Normal heart size and pericardium. 7. Normal mediastinum. Normal hilar regions. No obvious pulmonary artery emboli although not optimized on this exam. There is atherosclerotic calcification of the aortic arch with tortuosity and elongation of the aortic arch and descending thoracic aorta. 8. Multiple calcified nodules of the left breast reidentified. Chronic dislocation of the right shoulder joint, hardware, and other degenerative changes are stable. 9. Spinal degenerative changes are present. Several chronic and mild thoracic vertebral body compression deformities reidentified. No aggressive lesion is seen. 10. No demonstrated acute or significant process of the upper abdominal structures. CT/Chest WITH Contrast IMPRESSION: * Lobular partially spiculated mass in the posterior lateral aspect of the left upper lobe in the mid third region with attachment to the underlying pleura currently measures 3.02 x 3.06 cm compared to the previous measurement of 3.12 x 2.97 cm which is essentially unchanged when accounting for slight differences in measuring technique. The prior measurement was obtained on image 79/325 series 8 and on this current study 31/117 series 4. The mass is malignant appearing. Correlate with PET/CT exam of April 07, 2019. * Other findings as above. Electronically Signed: Florentino Navas MD at 22:55 EDT , Service support ,
[2019-11-26 12:56] LABS: CREATININE FINGERSTICK < 0.6 mg/dL (0.55-1.02)
== END ==
LOC: CT 12:39
PROVIDERS: PCP Family Medicine; Referring Provider Student in an Organized Health Care Education/Training Program; Visit Provider Student in an Organized Health Care Education/Training Program
DX: C34.92 Malignant neoplasm of unspecified part of left bronchus or lung (principal)
CPT/HCPCS: 71260; Q9967

== ENCOUNTER → 2020-04-01 12:39 | Outpatient (CLI) | payer MEDICARE, SELFPAY ==
[2019-04-15 16:18] VITALS: BMI 33.7
[2019-07-01 13:57] VITALS: BMI 33.1
--- NOTE | 2020-04-01 12:41 | CT_ITS ---
STUDY: CT CHEST WITHOUT CONTRAST REASON FOR EXAM: Female, 80 years old. F/U LUNG CA TREATMENT, last treatment 6 mo ago. Current smoker 1/2ppd. HTN-rx controlled. Prior rt humerus surgery. Compare to previous RADIATION DOSAGE (If Supplied By Facility): CTDIvol = ( 18.98 ) mGy, DLP = ( 577.89 ) mGycm TECHNIQUE: Transaxial imaging was performed without the administration of intravenous contrast material. Multiplanar coronal and sagittal images were reformatted. Individualized dose optimization techniques were used for this CT. COMPARISON: Comparison is made with prior study dated 11/26/2019. FINDINGS: A left-sided portacatheter is in place with the tip in the superior vena cava. The lobulated nodular density in the posterior-lateral aspect of left upper lobe has decreased in size. It presently measures 2.3 cm x 2 cm x 2.6 cm. Hyperinflation. Stable mild scarring at the lung bases. There is no demonstrated pleural abnormality. There are calcifications of the coronary arteries. There are multiple small lymph nodes within the mediastinum, which are normal in size and morphology most compatible with reactive lymph hyperplasia. Normal hilar regions. Normal unenhanced pulmonary arteries. There is atherosclerotic calcification of the aortic arch with tortuosity and elongation of the aortic arch and descending thoracic aorta. There are multi-level degenerative changes of the thoracic spine. Increased kyphosis. Mild loss of height of mid dorsal vertebrae. Prior ORIF of the proximal right humerus with a metallic artifact. There is no demonstrated abnormality of the visualized upper abdomen. CT/Chest without Contrast IMPRESSION: Since prior examination, there has been slight decrease in size of the left upper lobe nodule. The remainder of the examination is unchanged. Electronically Signed: Babak Edmond, at 14:30 EDT , Service support ,
== END ==
PROVIDERS: PCP Family Medicine; Referring Provider Student in an Organized Health Care Education/Training Program; Visit Provider Student in an Organized Health Care Education/Training Program
DX: C34.92 Malignant neoplasm of unspecified part of left bronchus or lung (principal); F17.210 Nicotine dependence, cigarettes, uncomplicated; I10 Essential (primary) hypertension
CPT/HCPCS: 71250

== ENCOUNTER → 2020-07-07 14:42 | Outpatient (CLI) | payer MEDICARE, SELFPAY ==
[2019-04-15 16:18] VITALS: BMI 33.7
[2019-07-01 13:57] VITALS: BMI 33.1
--- NOTE | 2020-07-07 14:46 | RAD_ITS ---
STUDY: X-RAY CHEST REASON FOR EXAM: Female, 80 years old. Chest pain TECHNIQUE: Frontal and lateral views of the chest. COMPARISON: 04/15/[address] of the chest dated 04/01/2020 FINDINGS: There is a stable nodular opacity within the left upper lung. There are stable prominent interstitial markings. Normal size heart. Normal mediastinum and meeta. Normal visualized pulmonary arteries. There is atherosclerotic calcification of the aortic arch with tortuosity. There is demineralization of the osseous structures. There are degenerative changes of the thoracic spine. There is a stable plate and screw fixation device within the right proximal humerus. There is no demonstrated abnormality of the visualized soft tissue structures of the upper abdomen. RAD/Chest PA and Lateral IMPRESSION: Stable examination demonstrating no acute cardiopulmonary process. Electronically Signed: Janis Daugherty MD at 16:54 EST Tel , Service support ,
[2020-07-07 17:47] LABS: Hematocrit 44.6 % (37-47); Hemoglobin 13.8 g/dL (12.0-15.0); Mean Corp Hgb Conc 30.9 g/dL (32-36); Mean Corpuscular Hgb 30.3 pg (27.0-32.0); Mean Corpuscular Volume 97.8 fL (81-99); Mean Platelet Vol. 10.6 fl (6.2-12.0); Platelet Count 239 K/mm3 (150-450); RBC Distribution Width CV 13.3 % (11.6-14.6); RBC Distribution Width SD 48.2 fl (35.1-43.9); Red Blood Count 4.56 M/mm3 (4.2-5.4); White Blood Count 7.2 K/mm3 (4.4-11.0)
[2020-07-07 18:17] LABS: AST(SGOT) 17 U/L (15-37); Alanine Aminotransfer ALT/SGPT 19 U/L (13-56); Albumin, Serum 3.6 g/dL (3.2-5.0); Alkaline Phosphatase 107 U/L (45-117); Anion Gap 4 (5-15); BUN 21 mg/dL (7-18); BUN/Creat Ratio 32.8 RATIO (10-20); Calcium,Total 9.2 mg/dL (8.5-10.1); Chloride 102 mmol/L (98-107); Cholesterol 139 mg/dL (200); Creatinine, Serum 0.64 mg/dL (0.55-1.02); EST Glomerular Filtration Rate 95 mL/min (>60); Est Glom Filt Rate - Afr Amer 115 mL/min (>60); Globulin 3.7 g/dL (2.2-4.2); Glucose 92 mg/dL (74-106); High Density Lipoprotein 69 mg/dL; Potassium 3.7 mmol/L (3.5-5.1); Protein, Total 7.3 g/dL (6.4-8.2); Sodium Level 137 mmol/L (136-145); Thyroid Stim Hormone (TSH) 1.61 uIU/mL (0.358-3.74); Triglycerides 95 mg/dL; Very Low Density Lipoprotein 19 mg/dL (5-40)
== END ==
PROVIDERS: PCP Family Medicine; Referring Provider Family Medicine; Visit Provider Family Medicine
DX: R07.9 Chest pain, unspecified (principal)
CPT/HCPCS: 36415; 71046; 80053; 80061; 84443; 85027

== ENCOUNTER → 2020-08-26 12:57 | Outpatient (CLI) | payer MEDICARE, SELFPAY ==
[2019-04-15 16:18] VITALS: BMI 33.7
[2019-07-01 13:57] VITALS: BMI 33.1
--- NOTE | 2020-08-26 13:00 | CT_ITS ---
STUDY: CT CHEST WITHOUT CONTRAST REASON FOR EXAM: Female, 80 years old. Follow treated lung cancer -- please compare to prior studies RADIATION DOSAGE (If Supplied By Facility): CTDIvol = ( 20.26 ) mGy, DLP = ( 654.07 ) mGycm TECHNIQUE: Transaxial imaging was performed without the administration of intravenous contrast material. Multiplanar coronal and sagittal images were reformatted. Individualized dose optimization techniques were used for this CT. COMPARISON: Comparison is made with prior examination 04/01/2020. FINDINGS: Stable scattered calcifications in the left breast. Essentially stable lobular mass in the posterior aspect of the left lower lobe which is pleural-based and abutting the left major fissure. Stable linear scarring at the left lung base. Hyperinflation. There is no demonstrated pleural abnormality. There are calcifications of the coronary arteries. Calcification of the mitral valve annulus. There are multiple small lymph nodes within the mediastinum, which are normal in size and morphology most compatible with reactive lymph hyperplasia. Normal hilar regions. Normal unenhanced pulmonary arteries. There is atherosclerotic calcification of the aortic arch with tortuosity and elongation of the aortic arch and descending thoracic aorta. There are multi-level degenerative changes of the thoracic spine. Increased kyphosis. Status post ORIF of the proximal right humeral fracture. There is no demonstrated abnormality of the visualized upper abdomen. CT/Chest without Contrast IMPRESSION: Stable examination. Electronically Signed: Babak Edmond MD at 14:44 EDT , Service support ,
== END ==
PROVIDERS: PCP Family Medicine; Referring Provider Student in an Organized Health Care Education/Training Program; Visit Provider Student in an Organized Health Care Education/Training Program
DX: C34.92 Malignant neoplasm of unspecified part of left bronchus or lung (principal)
CPT/HCPCS: 71250

== ENCOUNTER → 2020-10-06 14:26 | Outpatient (CLI) | payer MEDICARE, SELFPAY ==
[2019-04-15 16:18] VITALS: BMI 33.7
[2019-07-01 13:57] VITALS: BMI 33.1
[2020-10-06 18:09] LABS: Vitamin D,25 Hydroxy 48.4 ng/mL
[2020-10-06 18:10] LABS: Anion Gap 5 (5-15); BUN 21 mg/dL (7-18); BUN/Creat Ratio 36.7 RATIO (10-20); Chloride 97 mmol/L (98-107); Creatinine, Serum 0.57 mg/dL (0.55-1.02); EST Glomerular Filtration Rate 108 mL/min (>60); Est Glom Filt Rate - Afr Amer 131 mL/min (>60); Glucose 95 mg/dL (74-106); Potassium 3.6 mmol/L (3.5-5.1); Sodium Level 135 mmol/L (136-145)
== END ==
PROVIDERS: PCP Family Medicine; Referring Provider Family Medicine; Visit Provider Family Medicine
DX: I10 Essential (primary) hypertension (principal); E55.9 Vitamin D deficiency, unspecified
CPT/HCPCS: 36415; 80048; 82306

== ENCOUNTER → 2020-11-17 14:16 | Outpatient (CLI) | payer MEDICARE, SELFPAY ==
[2019-04-15 16:18] VITALS: BMI 33.7
[2019-07-01 13:57] VITALS: BMI 33.1
--- NOTE | 2020-11-17 14:47 | RAD_ITS ---
STUDY: X-RAY - THORACIC SPINE REASON FOR EXAM: Female, 80 years old. Mid back pain TECHNIQUE: 3 view(s) of the thoracic spine were obtained. COMPARISON: None. FINDINGS: There is an increase in the normal thoracic kyphosis. There is mild dextroscoliosis. There is demineralization of the thoracic spine with endplate spondylosis. There is multilevel disc space narrowing of the thoracic spine. Dense calcifications in the thoracic aorta without aneurysm RAD/Thoracic Spine 2 Views IMPRESSION: Multilevel degenerative changes with exaggerated kyphosis, no acute findings Electronically Signed: Pete Wheeler MD at 16:54 EDT , Service support ,
--- NOTE | 2020-11-17 14:50 | RAD_ITS ---
STUDY: X-RAY - LUMBAR SPINE REASON FOR EXAM: Female, 80 years old. Low back pain TECHNIQUE: 4 view(s) of the lumbar spine were obtained. COMPARISON: 2012 FINDINGS: There is an exaggerated lumbar lordosis. There is no substantial scoliosis. There is a normal alignment of the vertebrae. There is diffuse demineralization with multi-level endplate spondylosis. There is multi-level degenerative disc disease with multi-level disc space narrowing. There is atherosclerotic calcification of the abdominal aorta without a demonstrated aneurysm. RAD/L/S Spine Min 4 Views IMPRESSION: Degenerative changes of the spine, as detailed above. No acute findings or significant interval change Electronically Signed: Pete Wheeler MD at 16:53 EDT , Service support ,
== END ==
PROVIDERS: PCP Family Medicine; Referring Provider Family Medicine; Visit Provider Family Medicine
DX: M54.9 Dorsalgia, unspecified (principal)
CPT/HCPCS: 72070; 72110

== ENCOUNTER 2020-11-26 18:11 | Emergency (ER) | payer MEDICARE, SELFPAY ==
[2019-04-15 16:18] VITALS: BMI 33.7
[2019-07-01 13:57] VITALS: BMI 33.1
[2020-11-26 18:12] VITALS: BP 154/75; PULSE 62; RESP 15; TEMP 36.2; O2SAT 97; BMI 31.1
--- NOTE | 2020-11-26 18:20 | RAD_ITS ---
STUDY: X-RAY - RIGHT ANKLE REASON FOR EXAM: Female, 80 years old. INJURY TECHNIQUE: 3 view(s) of the ankle. COMPARISON: None. FINDINGS: Cortical plate-screw construct of the distal one third fibula and surgical screws of the medial malleolus and distal tibia present without demonstrated complications. No acute fractures seen. The bony structures are mildly demineralized. A small plantar calcaneal spur is present. Mild soft tissue swelling is present around the ankle joint. Normal tibiotalar articulation and ankle mortise. Normal visualized talus and calcaneus. The visualized subtalar, talonavicular, calcaneocuboid and tarsal articulations are normal. RAD/Ankle min 3 Views IMPRESSION: No visualized acute bony process. Electronically Signed: Florentino Navas MD at 19:20 EDT , Service support ,
--- NOTE | 2020-11-26 19:08 | ED.VIS.LOWEX ---
HPI History of Present Illness Chief Complaint: Lower Extremity Injury Narrative Narrative: 80-year-old female who normally walks with a Rollator presents with right ankle pain. She states that she was trying to get out of the car and it was parked too close to the curb and she got her foot wedged between the curb in the car. They had difficulty getting her out. She is been ambulatory since then with her Rollator. She complains of pain on extension of the foot. She states it hurts circumferentially around the ankle. She denies numbness or tingling. PFSH PFSH Medical History CAD (coronary artery disease) Depression Fatigue Fracture of wrist Heartburn Hyperlipidemia Hypertension Lung nodule Stomach ulcer Home Medications citalopram 20 mg PO DAILY 07/08/17 [History Last Taken Unknown] losartan 100 mg PO DAILY 03/27/19 [History Last Taken Unknown] metoprolol tartrate 25 mg PO BID 03/27/19 [History Last Taken Unknown] aspirin 81 mg PO DAILY 08/31/20 [History Last Taken Unknown] atorvastatin 20 mg PO QHS 08/31/20 [History Last Taken Unknown] chlorthalidone 25 mg DAILY 11/26/20 [History Last Taken Unknown] tramadol 100 mg PO DAILY PRN PRN 11/26/20 [History Last Taken Unknown] Allergy/AdvReac Type Severity Reaction Status Date / Time levofloxacin [From Levaquin] Allergy Itching Verified 11/26/20 18:12 lisinopril Allergy Other Verified 11/26/20 18:12 acetaminophen [From Percocet] AdvReac Vomiting Verified 11/26/20 18:12 oxycodone [From Percocet] AdvReac Vomiting Verified 11/26/20 18:12 Family History Brother Lung cancer Brother Lung cancer Father Lung cancer Mother Hypertension Surgical History History of heart artery stent History of lung biopsy Social History Smoking Status: Current every day smoker tobacco type: cigarettes ROS ROS ED Constitutional Constitutional ED: Denies fever(s) or subjective Eyes Eyes: Denies blurry vision or change in vision ENT ENT ED: Denies ear pain or rhinorrhea Cardiovascular Cardiovascular: Denies chest pain or palpitations Respiratory/Chest Respiratory/Chest: Denies cough or dyspnea Gastrointestinal Gastrointestinal: Denies abdominal pain or nausea Musculoskeletal Musculoskeletal: Reports other Details: Right ankle pain Integumentary Denies Abrasions or rash Neurologic Neurologic: Denies paresthesias or weakness Psychiatric Psychiatric: Denies anxiety or depression EXAM Physical Exam Const Vital Signs: 11/26/20 18:12 Temperature 97.2 F L Temperature Source Temporal Pulse Rate 62 Respiratory Rate 15 Blood Pressure 154/75 H Blood Pressure Mean 101 Pulse Ox 97 Oxygen Delivery Method Room Air Positive well nourished General Appearance ED: NAD HEENT normocephalic and atraumatic Eyes PERRL General Eye ED: Yes other Resp normal respiratory effort Cardio regular rate and regular rhythm Extremity Extremity Narrative: Tenderness to palpation of right ankle circumferentially. There is no obvious swelling or deformity. Pain with dorsiflexion. Psych mental status grossly normal Skin Lesions: no lesions Rashes: no rashes MDM MDM MDM Narrative Medical decision making narrative: Patient presenting after getting her foot stuck between a curb in the car for ankle pain. I obtain x-ray of the right ankle and there does not appear any acute bony abnormality interpreted by myself. Radiologist does agree. Patient offered analgesia but declines. She is placed in [place] wrap and air past. She has a walker already. Patient stable for discharge. Impression: 1. Right ankle sprain Radiography Diagnostic Testing: Radiology Impression Ankle X-Ray 11/26/20 18:20 IMPRESSION: No visualized acute bony process. Electronically Signed: Florentino Navas MD at 19:20 EDT , Service support , Discharge Plan Triage Chief Complaint: Lower Extremity Injury ED Provider: Oz Lobo Dx/Rx/DC Orders Instructions: ED Ankle Sprain (Adult) Prescriptions: No Action citalopram 20 MG tablet 20 mg PO DAILY RF: 0 losartan 100 MG tablet 100 mg PO DAILY RF: 0 metoprolol tartrate 25 MG tablet 25 mg PO BID RF: 0 atorvastatin 20 MG tablet 20 mg PO QHS RF: 0 aspirin 81 MG tablet,delayed release (DR/EC) 81 mg PO DAILY RF: 0 chlorthalidone 25 mg tablet 25 mg DAILY RF: 0 tramadol 50 mg tablet 100 mg PO DAILY PRN PRN (Reason: Pain) RF: 0 Primary Care Provider: Quan Valenzuela Referrals: Quan Valenzuela MD [Primary Care Provider] - Disposition Disposition: Home, Self Care Discharge Date/Time: 11/26/20 20:13
== END 2020-11-26 20:13 | disposition home or self-care (01) ==
PROVIDERS: Emergency Provider Student in an Organized Health Care Education/Training Program; PCP Family Medicine
DX: S93.401A Sprain of unspecified ligament of right ankle, initial encounter (principal); V48.9XXA Unspecified car occupant injured in noncollision transport accident in traffic accident, initial encounter; Y93.9 Activity, unspecified; Y92.480 Sidewalk as the place of occurrence of the external cause; Y99.9 Unspecified external cause status; I25.10 Atherosclerotic heart disease of native coronary artery without angina pectoris; F32.9 Major depressive disorder, single episode, unspecified; E78.5 Hyperlipidemia, unspecified; I10 Essential (primary) hypertension; F17.210 Nicotine dependence, cigarettes, uncomplicated; Z79.82 Long term (current) use of aspirin; Z79.899 Other long term (current) drug therapy
CPT/HCPCS: 73610; 99282; A4216

== ENCOUNTER → 2021-01-20 15:34 | Outpatient (CLI) | payer MEDICARE, SELFPAY ==
[2019-07-01 13:57] VITALS: BMI 33.1
--- NOTE | 2021-01-20 15:37 | RAD_ITS ---
STUDY: X-RAY - UNILATERAL RIBS ( LEFT ) REASON FOR EXAM: Female, 80 years old. Rib pain. TECHNIQUE: 4 view(s) of the ribs. COMPARISON: Chest x-ray dated 07/07/2020. FINDINGS: Marked osteopenia. Healing fractures of the left third and fourth ribs laterally. Atelectasis/scarring in the left upper lobe. RAD/Ribs Unil 2V No CXR IMPRESSION: Osteopenia with healing fractures of the left third and fourth ribs laterally. Electronically Signed: Francisco Beasley MD at 11:24 EDT , Service support ,
== END ==
LOC: MTRAD 15:36
PROVIDERS: PCP Family Medicine; Referring Provider Family Medicine; Visit Provider Family Medicine
DX: R07.81 Pleurodynia (principal)
CPT/HCPCS: 71100

== ENCOUNTER → 2021-02-16 12:55 | Outpatient (CLI) | payer MEDICARE, SELFPAY ==
[2019-04-15 16:18] VITALS: BMI 33.7
[2019-07-01 13:57] VITALS: BMI 33.1
--- NOTE | 2021-02-16 12:58 | CT_ITS ---
STUDY: CT CHEST WITHOUT CONTRAST REASON FOR EXAM: Female, 80 years old. Follow up treated nsclc -- please compare to prior exams RADIATION DOSAGE (If Supplied By Facility): CTDIvol = ( 12.95 ) mGy, DLP = ( 401.28 ) mGycm TECHNIQUE: Transaxial imaging was performed without the administration of intravenous contrast material. Multiplanar coronal and sagittal images were reformatted. Individualized dose optimization techniques were used for this CT. COMPARISON: Comparison is made with prior examination 08/26/2020. FINDINGS: Since prior study, there has been a mild degree of increased size of the nodular density seen in the posterior aspect of the left upper lobe. This abuts the left major fissure. It presently measures 1.9 cm x 2.2 cm. It previously measured 2.1 cm x 1.8 cm. And now is evidence of a linear density anterior to the nodular density most likely sided to prior radiation therapy. 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 This also evidence of stable scarring at the left lung base. There is no demonstrated pleural abnormality. There are calcifications of the coronary arteries. Normal mediastinum. Normal hilar regions. Normal unenhanced pulmonary arteries. There is atherosclerotic calcification of the aortic arch with tortuosity and elongation of the aortic arch and descending thoracic aorta. There are multi-level degenerative changes of the thoracic spine. Increased kyphosis. Status post ORIF of the proximal right humerus. There is no demonstrated abnormality of the visualized upper abdomen. CT/Chest without Contrast IMPRESSION: Slight increase in size of the nodular density in the posterior aspect of the left upper lobe with a soft tissue linear band anteriorly most likely secondary to prior radiation therapy. Electronically Signed: Babak Edmond MD at 15:51 EDT , Service support ,
== END ==
LOC: CT 12:58
PROVIDERS: PCP Family Medicine; Referring Provider Student in an Organized Health Care Education/Training Program; Visit Provider Student in an Organized Health Care Education/Training Program
DX: Z85.118 Personal history of other malignant neoplasm of bronchus and lung (principal)
CPT/HCPCS: 71250

== ENCOUNTER 2021-03-04 09:58 | Emergency (ER) | payer MEDICARE, SELFPAY ==
[2019-07-01 13:57] VITALS: BMI 33.1
[2021-03-04 09:59] VITALS: BP 141/68; PULSE 67; RESP 16; TEMP 36.1; O2SAT 97; BMI 34.7
--- NOTE | 2021-03-04 10:26 | EDS_ITS ---
HPI History of Present Illness Chief Complaint: Lower Extremity Injury Informant: patient Onset/Context/Timing Onset: Weeks Context: Gradual Onset Current Severity: Mild Maximum Severity: Moderate Narrative Narrative: Patient present secondary left hip pain. Patient reports a fall approximately 3 weeks ago. 1 week ago she started developing left hip pain and has had increasing difficulty with ambulation. She is concerned that she may broken her hip when she fell. She did have 2 left rib fractures from that fall. [facility] Medical History CAD (coronary artery disease) Depression Fatigue Fracture of wrist Heartburn Hyperlipidemia Hypertension Lung nodule Stomach ulcer Home Medications citalopram 20 mg PO DAILY 07/08/17 [History Last Taken Unknown] losartan 100 mg PO DAILY 03/27/19 [History Last Taken Unknown] metoprolol tartrate 25 mg PO BID 03/27/19 [History Last Taken Unknown] aspirin 81 mg PO DAILY 08/31/20 [History Last Taken Unknown] atorvastatin 20 mg PO QHS 08/31/20 [History Last Taken Unknown] chlorthalidone 25 mg DAILY 11/26/20 [History Last Taken Unknown] hydrocodone-acetaminophen 1 tab PO Q6H PRN 3 Days #10 tab 03/04/21 [Rx Last Taken Unknown] prednisone 40 mg PO DAILY 5 Days #10 tab 03/04/21 [Rx Last Taken Unknown] Allergy/AdvReac Type Severity Reaction Status Date / Time levofloxacin [From Levaquin] Allergy Itching Verified 03/04/21 10:02 lisinopril Allergy Other Verified 03/04/21 10:02 acetaminophen [From Percocet] AdvReac Vomiting Verified 03/04/21 10:02 oxycodone [From Percocet] AdvReac Vomiting Verified 03/04/21 10:02 Family History Brother Lung cancer Brother Lung cancer Father Lung cancer Mother Hypertension Surgical History History of heart artery stent History of lung biopsy Social History Smoking Status: Current every day smoker tobacco type: cigarettes ROS ROS ED Constitutional Constitutional ED: Denies chills or fever(s) Eyes Eyes: Denies change in vision ENT ENT ED: Denies sore throat Cardiovascular Cardiovascular: Denies chest pain Respiratory/Chest Respiratory/Chest: Denies cough or dyspnea Gastrointestinal Gastrointestinal: Denies abdominal pain, diarrhea, nausea or vomiting Genitourinary Genitourinary ED: Denies dysuria Musculoskeletal Musculoskeletal: Reports arthralgias; Denies back pain Integumentary Denies rash Neurologic Neurologic: Denies headache(s) or weakness Allergic/Immunologic Allergic/Immunologic ED: Denies urticaria EXAM Physical Exam Const Vital Signs: 03/04/21 09:59 03/04/21 14:47 Temperature 97.0 F L Temperature Source Temporal Pulse Rate 67 77 Respiratory Rate 16 16 Blood Pressure 141/68 H 151/81 H Blood Pressure Mean 92 104 Pulse Ox 97 Oxygen Delivery Method Room Air Positive well nourished and well developed General Appearance ED: well developed HEENT Reports normocephalic and head/scalp atraumatic Eyes PERRL and EOMs intact bilaterally Neck supple Chest Wall inspection of chest normal and palpation of chest normal Resp normal respiratory effort and clear to auscultation bilaterally Cardio regular rate and regular rhythm GI normal to inspection, nondistended, normoactive bowel sounds Palpation: soft Extremity Extremity Narrative: Tenderness palpation of the anterior left hip. Ecchymosis noted to the proximal thigh. She does have pain with logroll. Equal leg lengths appreciated. No tenderness at the knee or ankle. Neuro oriented x3 Sensorium / Orientation: alert Psych mental status grossly normal Skin no rashes or lesions noted MDM MDM MDM Narrative Medical decision making narrative: Left hip x-rays are obtained. Radiography Diagnostic Testing: Radiology Impression Hip/Pelvis X-Ray 03/04/21 11:00 IMPRESSION: Status post ORIF of the left greater trochanter. No acute fractures seen. Electronically Signed: Babak Edmond MD at 11:19 EDT , Service support , Lower Extremity CT 03/04/21 13:21 IMPRESSION: No acute fracture or dislocation is seen. Prior ORIF of the left greater trochanter. Electronically Signed: Babak Edmond MD at 13:53 EDT , Service support , Treatment and Re-Evaluation Comments:: Left hip x-rays reveal no obvious fracture per my interpretation. Radiology rotation is reviewed. Patient was given 1 tab of [place] for pain. She did continue to have significant difficulty getting to bedside commode. In light of this CT scan was obtained that reveals no fracture. With the patient not having pain initially after her fall but developing a couple weeks later I wonder if she has bursitis from the trauma. She will be treated with a course of steroids. She will be given a few tabs of [place] to help with breakthrough pain. She will follow-up with Dr. Burnham, her orthopedic doctor in [place] if not improving. Discharge Plan Triage Chief Complaint: Lower Extremity Injury ED Provider: Corina Reveles Dx/Rx/DC Orders Clinical Impression: Bursitis Instructions: ED Bursitis Prescriptions: New prednisone 20 mg tablet 40 mg PO DAILY 5 Days Qty: 10 RF: 0 hydrocodone-acetaminophen 5-325 mg tablet 1 tab PO Q6H PRN (Reason: pain) 3 Days Qty: 10 RF: 0 No Action citalopram 20 MG tablet 20 mg PO DAILY RF: 0 losartan 100 MG tablet 100 mg PO DAILY RF: 0 metoprolol tartrate 25 MG tablet 25 mg PO BID RF: 0 atorvastatin 20 MG tablet 20 mg PO QHS RF: 0 aspirin 81 MG tablet,delayed release (DR/EC) 81 mg PO DAILY RF: 0 chlorthalidone 25 mg tablet 25 mg DAILY RF: 0 Primary Care Provider: Quan Valenzuela Referrals: Quan Valenzuela MD [Primary Care Provider] - Trevin Burnham MD [NON-STAFF] - 1 Week if not improving Disposition Disposition: Home, Self Care
--- NOTE | 2021-03-04 11:00 | RAD_ITS ---
STUDY: X-RAY - PELVIS AND LEFT HIP REASON FOR EXAM: Female, 80 years old. Injury TECHNIQUE: 3 views of the pelvis and hip. COMPARISON: None. FINDINGS: There is a non-specific bowel gas pattern. Normal visualized soft tissue structures. There is narrowing with cortical sclerosis and osteophyte formation of the sacroiliac joint consistent with degenerative osteoarthritic changes. Normal bilateral superior and inferior pubic rami. There is narrowing with sclerosis of the pubic symphysis. Normal bilateral ischial tuberosities. Normal visualized femoral head. Normal acetabulum. There is moderate articular joint space narrowing of the hip. The patient is status post ORIF of the greater trochanter. RAD/HIP, UNI W/ Pelvis 2-3 Views IMPRESSION: Status post ORIF of the left greater trochanter. No acute fractures seen. Electronically Signed: Babak Edmond MD at 11:19 EDT , Service support ,
[2021-03-04] MEDS: HYDROcodone Bitartrate/Apap 5/325 Tablet PO (11:10)
--- NOTE | 2021-03-04 13:21 | CT_ITS ---
STUDY: CT SCAN LEFT REASON FOR EXAM: Female, 80 years old. Left hip pain RADIATION DOSAGE (If Supplied By Facility): CTDIvol = ( 32.74 ) mGy, DLP = ( 1291.71 ) mGycm. Individualized dose optimization techniques were used for this CT.? TECHNIQUE: Multiple axial tomographic images of the hip joint were obtained without intravenous contrast administration. Coronal and sagittal reconstructions were obtained as well. COMPARISON: Comparison is made with prior radiograph done earlier today. FINDINGS: The patient is status post open reduction and internal fixation of the greater trochanter. Is a mild degree of joint space narrowing of the hip joint. No fracture or dislocation is seen. CT/Extremity Lower without Contra IMPRESSION: No acute fracture or dislocation is seen. Prior ORIF of the left greater trochanter. Electronically Signed: Babak Edmond MD at 13:53 EDT , Service support ,
--- NOTE | 2021-03-04 14:46 | ED.RN ---
PT STATES THAT SHE DOES NOT WANT BE IN BED, IM JUST GOING TO SIT RIGHT HERE. BY RIGHT HERE SHE MEANS ON THE BSC.
[2021-03-04 14:47] VITALS: BP 151/81; PULSE 77; RESP 16
== END 2021-03-04 15:50 | disposition home or self-care (01) ==
PROVIDERS: Emergency Provider Emergency Medicine; PCP Family Medicine
DX: M71.9 Bursopathy, unspecified (principal); E78.5 Hyperlipidemia, unspecified; F32.9 Major depressive disorder, single episode, unspecified; I10 Essential (primary) hypertension; I25.10 Atherosclerotic heart disease of native coronary artery without angina pectoris; F17.210 Nicotine dependence, cigarettes, uncomplicated; Z79.52 Long term (current) use of systemic steroids; Z79.82 Long term (current) use of aspirin
CPT/HCPCS: 73502; 73700; 99283

== ENCOUNTER → 2021-04-14 10:48 | Outpatient (CLI) | payer MEDICARE, SELFPAY ==
[2019-07-01 13:57] VITALS: BMI 33.1
--- NOTE | 2021-04-14 10:51 | RAD_ITS ---
STUDY: XR Abdomen W/ Decub and/or Erect Views 04/14/2021 10:34 AM REASON FOR EXAM: Female, 81 years old. ABDOMINAL PAIN ABD PAIN TECHNIQUE: XR Abdomen W/ Decub and/or Erect Views COMPARISON: None FINDINGS: Normal visualized lung bases. There are atherosclerotic vascular calcifications. Degenerative findings of the hips. There is a moderate amount of colonic fecal material. There is no demonstrated free abdominal air. The visualized liver, spleen and kidneys are grossly normal in size and morphology. Normal soft tissue structures. There are diffuse degenerative changes of the visualized lumbar spine. RAD/Abd Inc Decub and/or Erect IMPRESSION: Constipation. Electronically Signed: Gigi Esparza MD at 16:54 EST , Service support ,
[2021-04-14 12:16] LABS: Absolute Lymphocyte Count 1.55 X10^3/uL (0.83-4.51); Absolute Neutrophil Count 6.4 X10^3/uL (2.0-7.7); Basophil# 0.05 X10^3/uL; Basophil% 0.6 % (0-1); Eosinophil# 0.16 X10^3/uL; Eosinophils% 1.8 % (0-5); Hematocrit 36.4 % (37-47); Hemoglobin 12.1 g/dL (12.0-15.0); Lymphocyte # 1.55 X10^3/ul (0.83-4.51); Lymphocyte % 17.1 % (19-41); Mean Corp Hgb Conc 33.2 g/dL (32-36); Mean Corpuscular Hgb 32.6 pg (27.0-32.0); Mean Corpuscular Volume 98.1 fL (81-99); Mean Platelet Vol. 9.4 fl (6.2-12.0); Monocyte# 0.81 X10^3/uL; NRBC Flagged by Analyzer 0 % (0-5); Neutrophil % 70.6 % (47-70); Platelet Count 409 K/mm3 (150-450); RBC Distribution Width CV 15.9 % (11.6-14.6); RBC Distribution Width SD 57.1 fl (35.1-43.9); Red Blood Count 3.71 M/mm3 (4.2-5.4); White Blood Count 9.1 K/mm3 (4.4-11.0)
[2021-04-14 12:29] LABS: Erythrocyte Sedimentation Rate 20 mm/hr (0-30)
[2021-04-14 12:41] LABS: ALB/GLOB Ratio 0.7 RATIO (0.9-2.4); AST(SGOT) 15 U/L (15-37); Alanine Aminotransfer ALT/SGPT 14 U/L (13-56); Albumin, Serum 2.7 g/dL (3.2-5.0); Alkaline Phosphatase 188 U/L (45-117); Anion Gap 7 (5-15); BUN 29 mg/dL (7-18); BUN/Creat Ratio 26.4 RATIO (10-20); Calcium,Total 8.5 mg/dL (8.5-10.1); Chloride 97 mmol/L (98-107); EST Glomerular Filtration Rate 51 mL/min (>60); Est Glom Filt Rate - Afr Amer 62 mL/min (>60); Globulin 3.8 g/dL (2.2-4.2); Glucose 99 mg/dL (74-106); Potassium 3.3 mmol/L (3.5-5.1); Protein, Total 6.5 g/dL (6.4-8.2); Sodium Level 135 mmol/L (136-145)
== END ==
PROVIDERS: PCP Family Medicine; Referring Provider Family Medicine; Visit Provider Family Medicine
DX: R10.9 Unspecified abdominal pain (principal)
CPT/HCPCS: 36415; 74019; 80053; 85025; 85652

== ENCOUNTER 2021-06-09 10:51 | Outpatient (CLI) | payer MEDICARE, SELFPAY ==
[2019-07-01 13:57] VITALS: BMI 33.1
[2021-06-09 11:54] LABS: Hematocrit 29.4 % (37-47); Hemoglobin 9.2 g/dL (12.0-15.0); Mean Corp Hgb Conc 31.3 g/dL (32-36); Mean Corpuscular Hgb 32.3 pg (27.0-32.0); Mean Corpuscular Volume 103.2 fL (81-99); Mean Platelet Vol. 9.6 fl (6.2-12.0); POSITIVE MORPHOLOGY YES; Platelet Count 434 K/mm3 (150-450); RBC Distribution Width CV 16.9 % (11.6-14.6); RBC Distribution Width SD 65.1 fl (35.1-43.9); RET-HE 33.8 pg (30-35); Red Blood Count 2.85 M/mm3 (4.2-5.4); Reticulocyte Count 3.56 % (0.5-1.5); White Blood Count 7.7 K/mm3 (4.4-11.0)
[2021-06-09 11:58] LABS: Scan Indicated on CBC? Y/N YES- FLAGS NOTED
[2021-06-09 12:25] LABS: ALB/GLOB Ratio 0.6 RATIO (0.9-2.4); AST(SGOT) 16 U/L (15-37); Alanine Aminotransfer ALT/SGPT 16 U/L (13-56); Albumin, Serum 2.7 g/dL (3.2-5.0); Alkaline Phosphatase 146 U/L (45-117); Anion Gap 9 (5-15); BUN 14 mg/dL (7-18); BUN/Creat Ratio 15.1 RATIO (10-20); Calcium,Total 8.9 mg/dL (8.5-10.1); Chloride 102 mmol/L (98-107); Creatinine, Serum 0.93 mg/dL (0.55-1.02); EST Glomerular Filtration Rate 62 mL/min (>60); Est Glom Filt Rate - Afr Amer 75 mL/min (>60); Globulin 4.4 g/dL (2.2-4.2); Glucose 90 mg/dL (74-106); Iron 38 ug/dL (50-170); Iron Binding Capacity,Total 281 ug/dL (250-450); Potassium 3.9 mmol/L (3.5-5.1); Protein, Total 7.1 g/dL (6.4-8.2); Sodium Level 137 mmol/L (136-145); Thyroid Stim Hormone (TSH) 2.08 uIU/mL (0.358-3.74)
[2021-06-09 12:38] LABS: Differential Comment SCANNED
== END 2021-06-09 23:59 | disposition short-term general hospital (02) ==
PROVIDERS: PCP Family Medicine; Referring Provider Family Medicine; Visit Provider Family Medicine
DX: D64.9 Anemia, unspecified (principal)
CPT/HCPCS: 36415; 80053; 83540; 83550; 84443; 85027; 85045

== ENCOUNTER 2021-06-09 13:51 | Outpatient (CLI) | payer MEDICARE, SELFPAY ==
[2019-07-01 13:57] VITALS: BMI 33.1
--- NOTE | 2021-06-09 14:44 | VDLE_ITS ---
Reason For Study: leg swelling Procedure LEFT This is a venous duplex using B-mode, color GSV is normal. flow and spectral Doppler. CFV is compressible, spontaneous, phasic, Exam performed in department. competent, and demonstrates normal A preliminary report was called and/or faxed augmentation. to [facility]. FV is compressible, spontaneous, phasic, competent and demonstrates normal augmentation. POP V is compressible, spontaneous, phasic, competent and demonstrates normal augmentation. T/P Trunk is compressible. PTV is compressible. LT PerV is compressible. VL/Venous Duplex US, Unilateral Interpretation Summary Deep veins of the left lower extremity are patent and compressible segmentally. There is no evidence of left lower extremity deep vein thrombosis. Valvular competence appears intac t within the proximal deep venous system on the left . The left great saphenous vein appears patent a nd compressible segmentally. Ordering Physician: Quan Valenzuela Referring Physician: Quan Valenzuela Performed By: Shruthi Tomlinson RVT
== END 2021-06-09 23:59 | disposition short-term general hospital (02) ==
PROVIDERS: PCP Family Medicine; Referring Provider Family Medicine; Visit Provider Family Medicine
DX: M79.89 Other specified soft tissue disorders (principal); D64.9 Anemia, unspecified
CPT/HCPCS: 36415; 80053; 83540; 83550; 84443; 85027; 85045; 93971

== ENCOUNTER 2021-07-26 13:40 | Outpatient (CLI) | payer MEDICARE, SELFPAY ==
[2019-07-01 13:57] VITALS: BMI 33.1
--- NOTE | 2021-07-26 13:52 | CT_ITS ---
STUDY: CT CHEST WITHOUT CONTRAST REASON FOR EXAM: Female, 81 years old. Follow up treated lung cancer -- please compare to prior studies RADIATION DOSAGE (If Supplied By Facility): CTDIvol = ( 16.07 ) mGy, DLP = ( 550.28 ) mGycm TECHNIQUE: Transaxial imaging was performed without the administration of intravenous contrast material. Multiplanar coronal and sagittal images were reformatted. Individualized dose optimization techniques were used for this CT. COMPARISON: Comparison is made with prior study dated 02/16/2021. FINDINGS: Since prior study, there has been a mild degree of increased size of the nodular soft tissue density in the posterior aspect of the left upper lobe. It presently measures 2.6 cm x 2.1 cm. This abuts the left major fissure posteriorly. Persistent increased markings are seen in the posterior aspect of the left upper lobe with area of bronchiectasis suggestive of post radiation changes. Stable linear scarring at the left lung base. There is no demonstrated pleural abnormality. There are calcifications of the coronary arteries. Normal mediastinum. Normal hilar regions. Normal unenhanced pulmonary arteries. There is atherosclerotic calcification of the aortic arch with tortuosity and elongation of the aortic arch and descending thoracic aorta. There are multi-level degenerative changes of the thoracic spine. Increased kyphosis. Status post ORIF of the proximal right humerus. There is no demonstrated abnormality of the visualized upper abdomen. CT/Chest without Contrast IMPRESSION: Since prior study, there has been a mild degree of increased size of the nodular densities in the posterior aspect of the left upper lobe. It presently measures 2.6 times by 2.1 cm. The remainder of examination is unchanged. Electronically Signed: Babak Edmond MD at 14:22 EST ,
== END 2021-07-26 23:59 | disposition home or self-care (01) ==
LOC: CT 13:41
PROVIDERS: PCP Family Medicine; Referring Provider Student in an Organized Health Care Education/Training Program; Visit Provider Student in an Organized Health Care Education/Training Program
DX: C34.92 Malignant neoplasm of unspecified part of left bronchus or lung (principal)
CPT/HCPCS: 71250

== ENCOUNTER → 2021-10-26 | Outpatient (CLI) | payer MEDICARE, SELFPAY ==
[2019-07-01 13:57] VITALS: BMI 33.1
--- NOTE | 2021-10-26 12:55 | CT_ITS ---
INDICATION: close observation of left lung cancer -- treated with SBRT, compare with prior studies EXAMINATION: CT CHEST WITHOUT CONTRAST TECHNIQUE: Helically acquired images were obtained of the chest. Sagittal and coronal reformats reviewed. A radiation dose optimization technique was used for this scan. IV Contrast dosage and agent: None. COMPARISON: Unenhanced chest CT from 07/26/2021 FINDINGS: LUNGS, PLEURA AND LARGE AIRWAYS: Grossly stable appearance of consolidation within posterior left upper lobe extending to the pleural surface (measurement of area is difficult secondary to ill-defined margins). Stable appearance of adjacent linear scarring, located along each side of left main pulmonary fissure. Stable mild linear scarring within right mid lung and left lower lobe. No significant pleural effusion. No pneumothorax. THYROID: Unremarkable as visualized. HEART AND PERICARDIUM: Stable borderline cardiomegaly with coronary arterial and mitral annular calcifications. No pericardial effusion. VESSELS: Atherosclerotic calcifications with no thoracic aortic aneurysm. MEDIASTINUM AND RADHA: No mediastinal or hilar adenopathy. Esophagus is unremarkable. No hiatal hernia. UPPER ABDOMEN: No acute pathology. BONES: Chronic fractures lateral left ribs 3 through 6. Status post ORIF right proximal femur. Skeletal degenerative changes noted. CT/Chest without Contrast IMPRESSION: Stable appearance of partial consolidation posterior left upper lobe with adjacent scarring and left rib fractures, compatible with known pulmonary malignancy. No evidence of distant spread of pulmonary malignancy or metastatic disease. Electronically Signed: Capo Sheth MD at 22:45 EDT ,
== END | disposition home or self-care (01) ==
LOC: CT 12:50
PROVIDERS: PCP Family Medicine; Referring Provider Student in an Organized Health Care Education/Training Program; Visit Provider Student in an Organized Health Care Education/Training Program
DX: C34.92 Malignant neoplasm of unspecified part of left bronchus or lung (principal)
CPT/HCPCS: 71250

== ENCOUNTER → 2022-01-31 | Outpatient (CLI) | payer MEDICARE, SELFPAY ==
[2019-07-01 13:57] VITALS: BMI 33.1
[2022-01-31 15:29] LABS: Absolute Lymphocyte Count 1.51 X10^3/uL (0.83-4.51); Absolute Neutrophil Count 4.1 X10^3/uL (2.0-7.7); Basophil# 0.04 X10^3/uL; Basophil% 0.6 % (0-1); Eosinophil# 0.19 X10^3/uL; Hematocrit 33.9 % (37-47); Hemoglobin 10.8 g/dL (12.0-15.0); Lymphocyte # 1.51 X10^3/ul (0.83-4.51); Lymphocyte % 23.6 % (19-41); Mean Corp Hgb Conc 31.9 g/dL (32-36); Mean Corpuscular Hgb 28.3 pg (27.0-32.0); Mean Corpuscular Volume 88.7 fL (81-99); Mean Platelet Vol. 10.5 fl (6.2-12.0); Monocyte# 0.57 X10^3/uL; Monocyte% 8.9 % (0-10); NRBC Flagged by Analyzer 0 % (0-5); Neutrophil # 4.06 X10^3/uL (2.7-7.7); Neutrophil % 63.6 % (47-70); Platelet Count 303 K/mm3 (150-450); RBC Distribution Width CV 14.3 % (11.6-14.6); RBC Distribution Width SD 45.8 fl (35.1-43.9); Red Blood Count 3.82 M/mm3 (4.2-5.4); White Blood Count 6.4 K/mm3 (4.4-11.0)
[2022-01-31 15:56] LABS: AST(SGOT) 17 U/L (15-37); Alanine Aminotransfer ALT/SGPT 17 U/L (13-56); Albumin, Serum 3.6 g/dL (3.2-5.0); Alkaline Phosphatase 136 U/L (45-117); Anion Gap 9 (5-15); BUN 9 mg/dL (7-18); BUN/Creat Ratio 13.7 RATIO (10-20); Calcium,Total 8.6 mg/dL (8.5-10.1); Chloride 101 mmol/L (98-107); Cholesterol 122 mg/dL (200); Creatinine, Serum 0.66 mg/dL (0.55-1.02); EST Glomerular Filtration Rate 92 mL/min (>60); Est Glom Filt Rate - Afr Amer 112 mL/min (>60); Globulin 3.6 g/dL (2.2-4.2); Glucose 87 mg/dL (74-106); High Density Lipoprotein 64 mg/dL; Potassium 3.9 mmol/L (3.5-5.1); Protein, Total 7.2 g/dL (6.4-8.2); Sodium Level 137 mmol/L (136-145); Thyroid Stim Hormone (TSH) 1.42 uIU/mL (0.358-3.74); Triglycerides 81 mg/dL; Very Low Density Lipoprotein 16 mg/dL (5-40); Vitamin D,25 Hydroxy 111.4 ng/mL
[2022-01-31 16:11] LABS: PTHIN 58.6 pg/mL (18.4-80.1)
== END | disposition home or self-care (01) ==
PROVIDERS: PCP Family Medicine; Visit Provider Family Medicine
DX: I25.10 Atherosclerotic heart disease of native coronary artery without angina pectoris (principal); M81.0 Age-related osteoporosis without current pathological fracture; I10 Essential (primary) hypertension
CPT/HCPCS: 80053; 80061; 82306; 82330; 83970; 84443; 85025

== ENCOUNTER → 2022-06-20 | Outpatient (CLI) | payer MEDICARE, SELFPAY ==
[2019-07-01 13:57] VITALS: BMI 33.1
--- NOTE | 2022-06-20 12:51 | RAD_ITS ---
EXAM: XR RIGHT SHOULDER COMPLETE, 2 OR MORE VIEWS CLINICAL INDICATION: PAIN TECHNIQUE: Two or more views of the right shoulder. This report was created using [employer] report generation technology. COMPARISON: None. FINDINGS: BONES/JOINTS: There is orthopedic plate and screw in the proximal humerus. There is a chronic deformity of the humeral head. 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 No acute fracture. No subluxation. Normal alignment. No sclerotic or destructive changes observed. SOFT TISSUES: Unremarkable. No soft tissue swelling or gas. No radiopaque foreign body. 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 No acute osseous abnormalities. Electronically Signed: Bud Niño MD at 18:10 EST ,
--- NOTE | 2022-06-20 13:00 | RAD_ITS ---
EXAM: XR ABDOMEN, 2 VIEWS AND XR CHEST, 1 VIEW CLINICAL INDICATION: NAUSEA TECHNIQUE: Frontal view of the chest, frontal view of the abdomen/pelvis and upright or decubitus view of the abdomen. This report was created using [employer] technology. COMPARISON: None. FINDINGS: CHEST: LUNGS AND PLEURAL SPACES: There is a linear density seen within the left upper lobe. There is an expansile lesion seen within the left upper rib that was seen on previous CT scans of the chest. No pneumothorax. No effusion. HEART: Unremarkable. Cardiac silhouette not enlarged. MEDIASTINUM: Central airways and mediastinal contour are unremarkable. ABDOMEN: INTRAPERITONEAL SPACE: No free air. GASTROINTESTINAL TRACT: Unremarkable. Non-obstructive. No bowel or stomach distention. ORGANS: Unremarkable as visualized. No organomegaly. No abnormal calcifications. TUBES, LINES AND DEVICES: None. 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 There are degenerative changes in the lumbar spine. SOFT TISSUES: No acute findings. RAD/Acute Abdomen Inc Chest IMPRESSION: Linear opacity in the left upper lobe with an expansile region of left upper ribs which is seen on previous studies. There is no acute abnormality within the chest or abdomen. Electronically Signed: Bud Niño MD at 18:00 EST ,
[2022-06-20 15:32] LABS: Absolute Lymphocyte Count 1.73 X10^3/uL (0.83-4.51); Basophil# 0.06 X10^3/uL; Basophil% 0.8 % (0-1); Eosinophil# 0.21 X10^3/uL; Eosinophils% 2.7 % (0-5); Hematocrit 32.5 % (37-47); Hemoglobin 9.8 g/dL (12.0-15.0); Lymphocyte # 1.73 X10^3/ul (0.83-4.51); Lymphocyte % 22.3 % (19-41); Mean Corp Hgb Conc 30.2 g/dL (32-36); Mean Corpuscular Hgb 28.4 pg (27.0-32.0); Mean Corpuscular Volume 94.2 fL (81-99); Mean Platelet Vol. 10.4 fl (6.2-12.0); NRBC Flagged by Analyzer 0 % (0-5); Neutrophil # 5.04 X10^3/uL (2.7-7.7); Neutrophil % 65.1 % (47-70); Platelet Count 351 K/mm3 (150-450); RBC Distribution Width CV 15.3 % (11.6-14.6); RBC Distribution Width SD 53.3 fl (35.1-43.9); RET-HE 25.9 pg (30-35); Red Blood Count 3.45 M/mm3 (4.2-5.4); Reticulocyte Count 2.05 % (0.5-1.5); White Blood Count 7.8 K/mm3 (4.4-11.0)
[2022-06-20 15:37] LABS: Erythrocyte Sedimentation Rate 23 mm/hr (0-30)
[2022-06-20 16:15] LABS: Vitamin B12 685 pg/mL (211-911)
[2022-06-20 16:31] LABS: ALB/GLOB Ratio 0.9 RATIO (0.9-2.4); AST(SGOT) 16 U/L (15-37); Alanine Aminotransfer ALT/SGPT 14 U/L (13-56); Albumin, Serum 3.2 g/dL (3.2-5.0); Alkaline Phosphatase 132 U/L (45-117); Amylase 22 U/L (25-115); Anion Gap 7 (5-15); BUN 11 mg/dL (7-18); BUN/Creat Ratio 16.1 RATIO (10-20); Calcium,Total 8.9 mg/dL (8.5-10.1); Chloride 105 mmol/L (98-107); Creatinine, Serum 0.68 mg/dL (0.55-1.02); EST Glomerular Filtration Rate 88 mL/min (>60); Est Glom Filt Rate - Afr Amer 106 mL/min (>60); Ferritin 22 ng/mL (8-252); Globulin 3.7 g/dL (2.2-4.2); Glucose 101 mg/dL (74-106); Iron 25 ug/dL (50-170); Lipase 138 U/L (73-393); Protein, Total 6.9 g/dL (6.4-8.2); Sodium Level 139 mmol/L (136-145)
== END | disposition home or self-care (01) ==
PROVIDERS: PCP Family Medicine; Referring Provider Family Medicine; Visit Provider Family Medicine
DX: R11.0 Nausea (principal); M25.511 Pain in right shoulder; D64.9 Anemia, unspecified
CPT/HCPCS: 36415; 73030; 74022; 80053; 82150; 82607; 82728; 83540; 83690; 85025; 85045; 85652

== ENCOUNTER → 2022-06-27 | Outpatient (CLI) | payer MEDICARE, SELFPAY ==
[2019-07-01 13:57] VITALS: BMI 33.1
== END | disposition home or self-care (01) ==
LOC: CT 08:06
PROVIDERS: PCP Family Medicine; Visit Provider Student in an Organized Health Care Education/Training Program
DX: C34.92 Malignant neoplasm of unspecified part of left bronchus or lung (principal)

== ENCOUNTER → 2023-06-12 | Outpatient (CLI) | payer MEDICARE, MEDICAID, SELFPAY ==
[2023-05-10 11:56] VITALS: BMI 33.1
[2023-06-12 15:06] LABS: Absolute Lymphocyte Count 0.95 X10^3/uL (0.83-4.51); Absolute Neutrophil Count 4.8 X10^3/uL (2.0-7.7); Basophil# 0.03 X10^3/uL; Basophil% 0.5 % (0-1); Eosinophil# 0.19 X10^3/uL; Eosinophils% 2.9 % (0-5); Hematocrit 38.2 % (37-47); Hemoglobin 11.8 g/dL (12.0-15.0); Lymphocyte # 0.95 X10^3/ul (0.83-4.51); Lymphocyte % 14.4 % (19-41); Mean Corp Hgb Conc 30.9 g/dL (32-36); Mean Corpuscular Volume 97.2 fL (81-99); Mean Platelet Vol. 10.6 fl (6.2-12.0); Monocyte# 0.59 X10^3/uL; NRBC Flagged by Analyzer 0 % (0-5); Neutrophil # 4.81 X10^3/uL (2.7-7.7); Neutrophil % 72.9 % (47-70); Platelet Count 313 K/mm3 (150-450); RBC Distribution Width CV 13.9 % (11.6-14.6); RBC Distribution Width SD 49.9 fl (35.1-43.9); Red Blood Count 3.93 M/mm3 (4.2-5.4); White Blood Count 6.6 K/mm3 (4.4-11.0)
[2023-06-12 15:51] LABS: ALB/GLOB Ratio 0.9 RATIO (0.9-2.4); AST(SGOT) 18 U/L (15-37); Alanine Aminotransfer ALT/SGPT 14 U/L (13-56); Albumin, Serum 2.9 g/dL (3.2-5.0); Alkaline Phosphatase 135 U/L (45-117); Anion Gap 6 (5-15); BUN 6 mg/dL (7-18); BUN/Creat Ratio 9.8 RATIO (10-20); Calcium,Total 8.5 mg/dL (8.5-10.1); Chloride 106 mmol/L (98-107); Creatinine, Serum 0.61 mg/dL (0.55-1.02); EST Glomerular Filtration Rate 100 mL/min (>60); Est Glom Filt Rate - Afr Amer 121 mL/min (>60); Globulin 3.4 g/dL (2.2-4.2); Glucose 91 mg/dL (74-106); Potassium 4.9 mmol/L (3.5-5.1); Protein, Total 6.3 g/dL (6.4-8.2); Sodium Level 137 mmol/L (136-145); Thyroid Stim Hormone (TSH) 6.06 uIU/mL (0.358-3.74)
[2023-06-12 16:33] LABS: Vitamin D,25 Hydroxy > 150.0 ng/mL (29.95-100.01)
== END | disposition home or self-care (01) ==
PROVIDERS: PCP Family Medicine; Visit Provider Family Medicine
DX: R63.4 Abnormal weight loss (principal); C25.9 Malignant neoplasm of pancreas, unspecified; M81.0 Age-related osteoporosis without current pathological fracture
CPT/HCPCS: 36415; 80053; 82306; 82378; 84443; 85025